=== PATIENT | female | born 1995 | race Caucasian/White ===

== ENCOUNTER → 2020-09-11 13:07 | Outpatient (CLI) | payer OTHER, SELFPAY ==
--- NOTE | 2020-09-11 13:13 | DI.US.S_ITS ---
PROCEDURE: US OB <= 14 WEEKS FETUS INDICATIONS: DATES OUTSIDE/PRIOR DATING DATA: Last menstrual period (LMP): 07/16/20 LMP-based estimated date of delivery (ELVIA): 04/22/21. First dating scan (date and location): 09/11/20, this study. Estimated date of delivery (ELVIA) from first dating scan: 05/06/21. TECHNIQUE: Real-time scanning was performed of the fetus and maternal pelvic organs, with image documentation. Endovaginal scanning was also performed to better visualize the fetus and maternal ovaries. COMPARISON: None. FINDINGS: Embryo: There is a single living intrauterine gestation in a normal appearing amniotic sac, with heart rate 112 beats per minute and yolk sac is visualized. The crown-rump length is 5 mm which correlates with a gestational age of 6 weeks 1 day, +/-5 days. Measurement variability in dating: +/- 4 weeks by LMP, +/- 7 days by mean sac diameter (use before 6 weeks gestation if crown-rump length not able to be measured), +/- 5 days by crown-rump length (up to 8 weeks 6 days gestation), +/- 7 days by crown-rump length (up to 13 weeks 6 days gestation). Maternal organs: Ovaries normal considering gestational status . IMPRESSION: Single living intrauterine gestation with gestational age projected to be 6 weeks 1 day, +/-5 days. The delivery date is based on the crown-rump length and is projected to be 05/16/21, plus or minus days. Dictated by: Ruben Barillas M.D. on 09/11/2020 at 15:04 Approved by: Ruben Barillas M.D. on 09/11/2020 at 15:06
[2020-09-11 17:30] LABS: HCG Quantitative /Beta subunit 39976 mIU/mL
== END ==
LOC: US 13:13
PROVIDERS: Referring Provider Family Medicine; Visit Provider Family Medicine
DX: Z34.01 Encounter for supervision of normal first pregnancy, first trimester (principal); Z3A.01 Less than 8 weeks gestation of pregnancy
CPT/HCPCS: 36415; 76801; 76817; 84702; 86850; 86900; 86901

== ENCOUNTER → 2020-09-17 12:36 | Outpatient (CLI) | payer OTHER, SELFPAY ==
[2020-09-17 13:41] LABS: Appearance Urine UA CLEAR; Bilirubin Urine UA NEGATIVE (NEGATIVE); Color Urine UA YELLOW; Glucose Urine UA NEGATIVE (Negative); Ketones Urine UA TRACE (NEGATIVE); Leukocyte Esterase Urine UA NEGATIVE (NEGATIVE); Nitrite Urine UA NEGATIVE (Negative); Occult Blood Urine UA TRACE-INTACT (Negative); Protein Urine UA NEGATIVE (Negative); Urobilinogen Urine UA 0.2 E.U./dL (0.2)
[2020-09-17 13:42] LABS: pH Urine UA 6.5 (4.5-8.0)
[2020-09-17 15:04] LABS: HCG Quantitative /Beta subunit 89387 mIU/mL
== END ==
PROVIDERS: Referring Provider Family Medicine; Visit Provider Family Medicine
DX: Z34.01 Encounter for supervision of normal first pregnancy, first trimester (principal); E75.02 Tay-Sachs disease; Z82.79 Family history of other congenital malformations, deformations and chromosomal abnormalities; Z3A.01 Less than 8 weeks gestation of pregnancy
CPT/HCPCS: 36415; 81003; 81420; 84702; 86850; 86900; 86901; 87077; 87086

== ENCOUNTER → 2020-11-19 12:06 | Outpatient (CLI) | payer OTHER, SELFPAY ==
[2020-11-19 12:56] LABS: Add Manual Diff / Slide Review NO; Basophils Absolute Auto 0 /uL (0-100); Basophils Percent Auto 0.3 % (0-2); Eosinophils Absolute Auto 0 /uL (0-450); Eosinophils Percent Auto 0.6 % (2-4); Hematocrit 38.2 % (36-46); Hemoglobin 13.2 g/dL (12.0-16.0); Lymphocytes Absolute Auto 1900 /uL (1100-4500); Lymphocytes Percent Auto 28.5 % (25-40); Mean Corpuscular HGB Conc 34.4 % (30-36); Mean Corpuscular Hemoglobin 30.2 PG (26-34); Mean Corpuscular Volume 87.7 fL (80-100); Monocytes Absolute Auto 500 /uL (0-900); Monocytes Percent Auto 7.2 % (3-14); Neutrophils Absolute Auto 4200 /uL (1500-7000); Neutrophils Percent Auto 63.4 % (50-75); Platelet Count 218 X10^3/uL (150-400); Red Blood Cell Count 4.36 X10^6/uL (4.0-5.2); Red Cell Distribution Width 13.5 % (11.6-14.8); White Blood Cell Count 6.6 X10^3/uL (4.5-11.0)
[2020-11-19 13:47] LABS: Hepatitis B Surface Antigen NEGATIVE s/c (NEGATIVE); Rubella Antibody IgG 6.9 IU/mL (>15)
[2020-11-19 13:59] LABS: HIV 1 & 2 Ab/Ag 4th Gen Combo NEGATIVE (NEGATIVE); Hep C Virus Ab w/Reflex Quant NEGATIVE s/c (NEGATIVE)
[2020-11-20 06:27] LABS: RPR Screen Non Reactive (Non Reactive); Varicella IgG Antibody 357 index (Immune >165)
[2020-11-20 15:57] LABS: HSV 2 IGG AB 2.46 index (0.00-0.90); HSV1IGG < 0.91 index (0.00-0.90)
== END ==
PROVIDERS: PCP Family Medicine; Referring Provider Family Medicine; Visit Provider Family Medicine
DX: Z34.01 Encounter for supervision of normal first pregnancy, first trimester (principal)
CPT/HCPCS: 36415; 80055; 86695; 86696; 86787; 86803; 87389

== ENCOUNTER → 2020-11-27 11:23 | Outpatient (CLI) | payer OTHER, SELFPAY ==
[2020-11-27 14:27] LABS: COVID19 -Nasal RAPID Negative (Negative)
== END ==
PROVIDERS: PCP Family Medicine; Visit Provider Nurse Practitioner
DX: R05 Cough (principal); R09.81 Nasal congestion; Z20.822 Contact with and (suspected) exposure to COVID-19
CPT/HCPCS: 87635

== ENCOUNTER → 2020-12-10 10:25 | Outpatient (CLI) | payer OTHER, SELFPAY ==
--- NOTE | 2020-12-10 10:27 | DI.US.S_ITS ---
PROCEDURE: US OB >= 14 WEEKS FETUS INDICATIONS: ANATOMIC SURVEY OUTSIDE/PRIOR DATING DATA: Last menstrual period (LMP): 07/16/2020. LMP-based estimated date of delivery (ELVIA): 04/22/2021. First dating scan (date and location): 09/11/2020 at . Estimated date of delivery (ELVIA) from first dating scan: 05/06/2021. TECHNIQUE: Real-time scanning was performed of the fetus, with image documentation and biometric measurements. Endovaginal scanning: yes. COMPARISON: [facility], OB <= 14 WEEKS FETUS, 09/11/2020, 13:26. FINDINGS: General: A single living intrauterine gestation is present. Presentation: Variable. Placenta: Placental position is posterior and measuring 1.9 cm from the internal os. Amniotic fluid index: 11.9 cm, normal range is 5-24 cm; largest pocket 3.6 cm. heart rate: 160 beats per minute. Maternal cervical canal: 5.3 cm long. Normal lower limit is 2.5 cm. biometrics: Biparietal diameter: 19 weeks 1 day Head circumference: 19 weeks 0 day Abdominal circumference: 19 weeks 1 day Femur length: 18 weeks 6 days Estimated gestational age from initial scan: 19 weeks 0 day. Composite gestational age from present scan: 19 weeks 0 day. Estimated weight and percentile: 269 g; 46% Measurement variability for biometric dating: +/- 7 days from 14 weeks to 15 weeks 6 days gestation, +/- 10 days from 16 weeks to 21 weeks 6 days gestation, +/- 2 weeks from 22 weeks to 27 weeks 6 days gestation, +/- 3 weeks for 28 weeks gestation or later. weight reference: 4500 g or EFW >90/95% is considered macrosomia or large for gestational age. EFW <10% is small for gestational age. EFW 5% or less is considered intra-uterine growth restriction. Anatomic survey: Neuro: Ventricles are non-dilated at less than 10 mm. Cisterna magna is normal at 3-11 mm. Cerebellum is normal in size and morphology. Nuchal skin fold: Normal at less than 6 mm between 14-21 weeks gestational age. Face: Nose and lips, facial profile are normal. Spine: No evidence for spina bifida. Heart: 4-chambered heart is present, with normal ventricular outflow tracts. Diaphragm: Diaphragm is intact. Stomach: Left-sided stomach is present. Kidneys: No hydronephrosis. Normal is less than 5 mm in 2nd trimester, less than 7 mm in 3rd trimester. Cord: 3-vessel cord has orthotopic insertion. Bladder: Normal in size. Extremities: All 4 extremities identified. IMPRESSION: 1. A single living intrauterine gestation with normal interval growth. 2. Normal anatomic survey. 3. Low-lying placenta which measures 1.9 cm from the internal os. Recommend imaging follow-up if clinically indicated. Dictated by: Alton Blake M.D. on 12/10/2020 at 13:17 Approved by: Alton Blake M.D. on 12/10/2020 at 13:22
== END ==
PROVIDERS: PCP Family Medicine; Referring Provider Family Medicine; Visit Provider Family Medicine
DX: Z34.02 Encounter for supervision of normal first pregnancy, second trimester (principal); Z3A.20 20 weeks gestation of pregnancy
CPT/HCPCS: 76811; 76817

== ENCOUNTER → 2021-01-15 10:12 | Outpatient (CLI) | payer OTHER, SELFPAY ==
--- NOTE | 2021-01-15 10:14 | DI.US.S_ITS ---
PROCEDURE: US OB FOLLOW UP INDICATIONS: LOW-LYING PLACENTA OUTSIDE/PRIOR DATING DATA: Last menstrual period (LMP): 07/16/2020. LMP-based estimated date of delivery (ELVIA): 04/22/2021. First dating scan (date and location): 09/11/2020 at [facility]. Estimated date of delivery (ELVIA) from first dating scan: 05/06/2021 TECHNIQUE: Real-time scanning was performed of the fetus, with image documentation. Endovaginal scanning: Not performed. COMPARISON: [facility], , OB >= 14 WEEKS FETUS, 12/10/2020, 10:54. FINDINGS: A single living intrauterine gestation is present. Presentation: Breech Placenta: Placental position is posterior. The lower placental margin is approximately 2.7 cm from the internal cervical os. Amniotic fluid index: 14.1 cm, normal range is 5-24 cm. Large pocket 4.1 cm. heart rate: 139 beats per minute. Maternal cervical canal: 4.8 cm long. Normal lower limit is 2.5 cm Estimated gestational age from initial scan: 24 weeks 1 day. IMPRESSION: 1. Single live intrauterine . 2. Low lying placenta, with inferior margin approximately 2.7 cm from the internal cervical os. Dictated by: Lio Arevalo M.D. on 01/15/2021 at 11:38 Approved by: Lio Arevalo M.D. on 01/15/2021 at 11:42
== END ==
PROVIDERS: PCP Family Medicine; Referring Provider Family Medicine; Visit Provider Family Medicine
DX: O44.42 Low lying placenta NOS or without hemorrhage, second trimester (principal); Z3A.24 24 weeks gestation of pregnancy
CPT/HCPCS: 76816

== ENCOUNTER → 2021-01-20 17:11 | Outpatient (ROUT) | payer OTHER, SELFPAY ==
[2021-01-23 09:40] LABS: HSV 1 DNA Negative (Negative); HSV 2 DNA Positive (Negative)
== END ==
PROVIDERS: PCP Family Medicine; Visit Provider Family Medicine
DX: A74.9 Chlamydial infection, unspecified (principal); B00.9 Herpesviral infection, unspecified
CPT/HCPCS: 87529

== ENCOUNTER → 2021-02-19 14:07 | Outpatient (CLI) | payer OTHER, SELFPAY ==
[2021-02-19 15:53] LABS: Add Manual Diff / Slide Review NO; Basophils Absolute Auto 0 /uL (0-100); Basophils Percent Auto 0.2 % (0-2); Eosinophils Absolute Auto 0 /uL (0-450); Eosinophils Percent Auto 0.4 % (2-4); Hematocrit 35.6 % (36-46); Hemoglobin 12.3 g/dL (12.0-16.0); Lymphocytes Absolute Auto 1700 /uL (1100-4500); Lymphocytes Percent Auto 21.7 % (25-40); Mean Corpuscular HGB Conc 34.4 % (30-36); Mean Corpuscular Hemoglobin 30.7 PG (26-34); Mean Corpuscular Volume 89.4 fL (80-100); Monocytes Absolute Auto 500 /uL (0-900); Monocytes Percent Auto 6.6 % (3-14); Neutrophils Absolute Auto 5500 /uL (1500-7000); Neutrophils Percent Auto 71.1 % (50-75); Platelet Count 187 X10^3/uL (150-400); Red Blood Cell Count 3.99 X10^6/uL (4.0-5.2); Red Cell Distribution Width 13.4 % (11.6-14.8); White Blood Cell Count 7.8 X10^3/uL (4.5-11.0)
[2021-02-19 16:37] LABS: GTT (PREG) 1 Hour PP 50gm Dose 163 mg/dL (76-139)
== END ==
PROVIDERS: PCP Family Medicine; Referring Provider Family Medicine; Visit Provider Family Medicine
DX: Z34.90 Encounter for supervision of normal pregnancy, unspecified, unspecified trimester (principal); Z3A.29 29 weeks gestation of pregnancy
CPT/HCPCS: 36415; 82950; 85025

== ENCOUNTER → 2021-02-28 07:25 | Outpatient (CLI) | payer OTHER, SELFPAY ==
[2021-02-28 09:27] LABS: Glucose 1 Hour Gest 169 mg/dL (76-180)
[2021-02-28 09:27] LABS: Glucose Fasting Gestational 86 mg/dL (76-95)
[2021-02-28 10:44] LABS: Glucose 2 Hour Gest 137 mg/dL (76-155)
[2021-02-28 10:56] LABS: Glucose Tol Interp,Gestational INTERPRETATION
[2021-02-28 12:01] LABS: Glucose 3 Hour Gest 117 mg/dL (76-140)
== END ==
PROVIDERS: PCP Family Medicine; Referring Provider Family Medicine; Visit Provider Family Medicine
DX: O24.419 Gestational diabetes mellitus in pregnancy, unspecified control (principal); Z3A.29 29 weeks gestation of pregnancy
CPT/HCPCS: 36415; 82951; 82952

== ENCOUNTER 2021-03-12 15:20 | Outpatient (CLI) | payer OTHER, SELFPAY ==
--- NOTE | 2021-03-12 15:26 | PM.OBTRLD ---
Visit Information Visit Information Date of evaluation: 03/12/21 Primary OB Provider: Jacqueline Andre Reason for Evaluation: Yes pre-term labor Comments/Additional reasons for admission: 25yo at 32w1d here due to persistent cramping. Pt reports cramping started last night and was constant. Throughout the day today it has been more intermittent, but stronger. She is not certain how often it is occurring. No LOF or vaginal bleeding. She is feeling her baby move regularly. [facility] Medical History (Updated 03/12/21 @ 15:27 by Jacqueline Andre MD) Anxiety Chicken pox (~2015) GERD (gastroesophageal reflux disease) (~2016) Migraines (~2018) Scoliosis Shingles (~2019) Surgical History (Updated 10/01/20 @ 21:53 by Katiana Alvarez) Anesthesia History of removal of nevus [place] teeth extracted (~2016) Family History (Updated 10/01/20 @ 21:55 by Katiana Alvarez) Mother Hypertension Hyperlipidemia Father Brain malignant neoplasm Stented coronary artery Grandmother Diabetes mellitus Thyroid cancer Cardiac defibrillator in situ Pacemaker Stented coronary artery Psoriasis Grandfather Dementia Pacemaker Hx of usp use of blood thinners Grandmother Unknown family medical history Grandfather Brain embolism and thrombosis Brother No problems noted. Social History marital status: unmarried,living together number of children: 0 household members: significant other lives independently: Yes caregiver/support person: No housing: house pets and animals: Yes (1 dog, 3 cats: aware & safe. 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 ) ruth/faith: Taoist special ruth needs: No seatbelt use: always working smoke detector in home: Yes fire extinguisher in home: Yes carbon monox detector in home: Yes firearms in home: Yes firearms unloaded and locked: Yes do you feel safe at home: Yes Smoking Status: Never smoker second hand exposure: No alcohol intake: former (Pre-: Socially. 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 ) frequency: daily duration: > 90 minutes/day Evaluation Evaluation Baseline heart rate: 120 Variability: Moderate (11-25) monitor accelerations: Present Monitor Decelerations: Absent Contraction Frequency (minutes): 0 Category of Tracing: Reactive Diagnosis, Plan/Disposition Final Diagnosis (1) Uterine cramping: Status: Acute Plan/Disposition Plan: 25yo at 32w1d here due to persistent cramping. No contractions on monitoring. U/A without evidence UTI. Discussed heating pad/baths, Tylenol PRN, hydration. Stable for d/c home. OB Disposition: home
[2021-03-12 16:12] LABS: Appearance Urine UA SL CLOUDY; Bilirubin Urine UA NEGATIVE (NEGATIVE); Color Urine UA YELLOW; Glucose Urine UA NEGATIVE (Negative); Ketones Urine UA NEGATIVE (NEGATIVE); Leukocyte Esterase Urine UA NEGATIVE (NEGATIVE); Nitrite Urine UA NEGATIVE (Negative); Occult Blood Urine UA NEGATIVE (Negative); Protein Urine UA NEGATIVE (Negative); Urobilinogen Urine UA 0.2 E.U./dL (0.2)
[2021-03-12 16:53] LABS: Bacteria Urine Moderate (10-30); Culture Indicated Urine Cult Not Indicated; RBC Urine None Seen (0-5/HPF); Squamous Epithelial Cell Urine 5-10 /HPF (0-5/HPF); WBC Urine 5-10/HPF (0-5/HPF)
== END 2021-03-12 17:03 | disposition home or self-care (01) ==
LOC: LABOR 17:03 → OB 03-13 13:40
PROVIDERS: PCP Family Medicine; Referring Provider Family Medicine; Visit Provider Family Medicine
DX: O26.893 Other specified pregnancy related conditions, third trimester (principal); R10.9 Unspecified abdominal pain; Z3A.32 32 weeks gestation of pregnancy
CPT/HCPCS: 59025; 81001; G0378; G0379

== ENCOUNTER → 2021-04-08 15:59 | Outpatient (CLI) | payer OTHER, SELFPAY ==
[2021-04-09 10:44] LABS: Strep Grp B PCR NEG for Grp B Strep
== END ==
PROVIDERS: PCP Family Medicine; Visit Provider Family Medicine
DX: Z34.00 Encounter for supervision of normal first pregnancy, unspecified trimester (principal); Z3A.35 35 weeks gestation of pregnancy
CPT/HCPCS: 87653

== ENCOUNTER 2021-05-06 08:34 | Outpatient (CLI) | payer OTHER, SELFPAY ==
--- NOTE | 2021-05-06 09:31 | P.TNLD_ITS ---
Visit Information Visit Information Date of evaluation: 05/06/21 Primary OB Provider: Jacqueline Andre Reason for Evaluation: Yes other Comments/Additional reasons for admission: 25yo at 40w0d here for headache. Pt reports severe migraine starting last night, persisting into the morning. Has now responded well to Tylenol. No vision changes, RUQ abdominal pain, swelling. No LOF, vaginal bleeding. Mild intermittent contractions. [facility] Medical History (Updated 05/06/21 @ 13:52 by Jacqueline Andre MD) Anxiety Chicken pox (~2015) GERD (gastroesophageal reflux disease) (~2016) Migraines (~2018) Scoliosis Shingles (~2019) Surgical History (Updated 10/01/20 @ 21:53 by Katiana Alvarez) Anesthesia History of removal of nevus [place] teeth extracted (~2016) Family History (Updated 10/01/20 @ 21:55 by Katiana Alvarez) Mother Hypertension Hyperlipidemia Father Brain malignant neoplasm Stented coronary artery Grandmother Diabetes mellitus Thyroid cancer Cardiac defibrillator in situ Pacemaker Stented coronary artery Psoriasis Grandfather Dementia Pacemaker Hx of correction use of blood thinners Grandmother Unknown family medical history Grandfather Brain embolism and thrombosis Brother No problems noted. Social History marital status: unmarried,living together number of children: 0 household members: significant other lives independently: Yes caregiver/support person: No housing: house pets and animals: Yes (1 dog, 3 cats: aware & safe. 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 ) ruth/caodaism: Zoroastrianism special ruth needs: No seatbelt use: always working smoke detector in home: Yes fire extinguisher in home: Yes carbon monox detector in home: Yes firearms in home: Yes firearms unloaded and locked: Yes do you feel safe at home: Yes Smoking Status: Never smoker second hand exposure: No alcohol intake: former (Pre-: Socially. 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 ) frequency: daily duration: > 90 minutes/day Evaluation Evaluation Baseline heart rate: 150 Variability: Moderate (11-25) monitor accelerations: Present Monitor Decelerations: Absent Diagnosis, Plan/Disposition Final Diagnosis (1) Headache: Status: Acute Plan/Disposition Plan: 25yo at 40w0d here for migraine headache. BP normal range, otherwise asymptomatic - no significant concern for pre-eclampsia. Responded well to Tylenol. Safe to d/c home. OB Disposition: home
== END 2021-05-06 09:38 | disposition home or self-care (01) ==
LOC: LABOR 08:44 → OB 05-07 09:48
PROVIDERS: PCP Family Medicine; Referring Provider Family Medicine; Visit Provider Family Medicine
DX: O26.893 Other specified pregnancy related conditions, third trimester (principal); R51.9 Headache, unspecified; O48.0 Post-term pregnancy; Z3A.40 40 weeks gestation of pregnancy
CPT/HCPCS: 59025; G0378; G0379

== ENCOUNTER 2021-05-11 18:34 | Inpatient (IN) | payer OTHER, SELFPAY ==
[2021-05-11 23:04] VITALS: BP 120/72
[2021-05-12 08:12] LABS: Add Manual Diff / Slide Review NO; Basophils Absolute Auto 0 /uL (0-100); Basophils Percent Auto 0.7 % (0-2); Eosinophils Absolute Auto 0 /uL (0-450); Eosinophils Percent Auto 0.6 % (2-4); Hematocrit 38.9 % (36-46); Hemoglobin 13.5 g/dL (12.0-16.0); Lymphocytes Absolute Auto 2000 /uL (1100-4500); Lymphocytes Percent Auto 31.5 % (25-40); Mean Corpuscular HGB Conc 34.6 % (30-36); Mean Corpuscular Hemoglobin 30.2 PG (26-34); Mean Corpuscular Volume 87.4 fL (80-100); Monocytes Absolute Auto 800 /uL (0-900); Monocytes Percent Auto 12.2 % (3-14); Neutrophils Absolute Auto 3400 /uL (1500-7000); Platelet Count 211 X10^3/uL (150-400); Red Blood Cell Count 4.46 X10^6/uL (4.0-5.2); Red Cell Distribution Width 14.4 % (11.6-14.8); White Blood Cell Count 6.2 X10^3/uL (4.5-11.0)
[2021-05-12] MEDS: LACTATED RINGERS 1,000 ML 100 ML IV ×4 (08:17→18:37)
[2021-05-12] MEDS: OXYTOCIN PREMIX 30 UNIT/500 ML PLAST..BAG IV (08:18)
--- NOTE | 2021-05-12 09:12 | PM.OBHP.IH.1 ---
OB HPI Date/Time Date of admission: 05/12/21 Date Patient Seen: 05/12/21 Time Patient Seen: 07:50 History of Present Condition Chief complaint: ELVIA Calculator Estimated Delivery Date Method Current WG Current Estimate 05/06/21 Ultrasound #1 40w 6d Other Estimates 04/22/21 LMP (Certain) 42w 6d Estimated Gestational Age (weeks): 40w6d : 1 Para: 0 Narrative: Pt is a 25yo at 40w6d who presented for post-dates IOL. Her has been uncomplicated. She did have genital HSV at 24wks, treated, and is now on prophylactic Valacylovir without any recurrence of lesions. She denies any vaginal bleeding or LOF. She has had mild cramping. She is feeling her baby move regularly. 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 Indications Indication for induction OB: post dates Preadmission Labs Last OB Lab Results: Blood Type AB Positive 05/12/21 07:55 05/12/21 Antibody Screen Negative 05/12/21 07:55 05/12/21 Hematocrit 38.9 % (36-46) 05/12/21 07:55 05/12/21 Hemoglobin 13.5 g/dL (12.0-16.0) 05/12/21 07:55 05/12/21 Hepatitis B Surface Antigen Negative s/c (NEGATIVE) 11/19/20 12:12 11/19/20 Hepatitis C Antibody Negative s/c (NEGATIVE) 11/19/20 12:12 11/19/20 Rubella Antibody 6.9 IU/mL (>15) L 11/19/20 12:12 11/19/20 Varicella-Zoster IgG Antibody 357 index (Immune >165) 11/19/20 12:12 11/19/20 Glucose 1 Hour 163 mg/dL (76-139) H 02/19/21 14:14 02/19/21 Group B Streptococcus (PCR) Neg for grp b strep 04/08/21 15:59 04/08/21 Glucose Tolerance Testing: Fasting (86), 1 hr (169), 2 hr (137) and 3 hr (117) -: Urine: negative -: PAP smear: Normal Genetic Screens: Cell-free DNA: Normal External Labs -: Urine: negative Evaluation Evaluation Baseline heart rate: 130 Variability: Moderate (11-25) monitor accelerations: Present Monitor Decelerations: Absent Status: Category l Dilation (cm): 1.5 Effacement (%): 70 Dilation: 1-2 cm Effacement: 60-70% station: -2 Position of cervix: posterior Consistency: soft Srivastava score: 6 PFSH Medical History (Updated 05/06/21 @ 13:52 by Jacqueline Andre MD) Anxiety Chicken pox (~2015) GERD (gastroesophageal reflux disease) (~2016) Migraines (~2018) Scoliosis Shingles (~2019) Surgical History (Updated 10/01/20 @ 21:53 by Katiana Alvarez) Anesthesia History of removal of nevus [place] teeth extracted (~2016) Family History (Updated 10/01/20 @ 21:55 by Katiana Alvarez) Mother Hypertension Hyperlipidemia Father Brain malignant neoplasm Stented coronary artery Grandmother Diabetes mellitus Thyroid cancer Cardiac defibrillator in situ Pacemaker Stented coronary artery Psoriasis Grandfather Dementia Pacemaker Hx of shelter use of blood thinners Grandmother Unknown family medical history Grandfather Brain embolism and thrombosis Brother No problems noted. Social History marital status: unmarried,living together number of children: 0 household members: significant other lives independently: Yes caregiver/support person: No housing: house pets and animals: Yes (1 dog, 3 cats: aware & safe. 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 ) ruth/zoroastrianism: Yazdanism special ruth needs: No seatbelt use: always working smoke detector in home: Yes fire extinguisher in home: Yes carbon monox detector in home: Yes firearms in home: Yes firearms unloaded and locked: Yes do you feel safe at home: Yes Smoking Status: Never smoker second hand exposure: No alcohol intake: former (Pre-: Socially. 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 ) frequency: daily duration: > 90 minutes/day Meds Home Medications and Allergies Home Medications Medication Instructions Recorded Confirmed Type prenat.vits,crystal,[id number] 1 tab PO DAILY 09/05/20 05/12/21 History valacyclovir 1 gram tablet 1,000 mg PO BID #60 tab 04/11/21 05/12/21 Rx breast pump #1 ea 04/14/21 05/12/21 Rx Allergies Allergy/AdvReac Type Severity Reaction Status Date / Time lactose Allergy Intermediate GI upset & Verified 05/02/21 08:51 pain OB Exam Narrative Exam Narrative: Gen: NAD, sitting comfortably in bed, appears well CV: RRR, no murmurs Resp: clear to auscultation bilaterally Abd: soft, gravid Ext: no edema Objective Labs Result Diagrams: 05/12/21 07:55 Labs: Laboratory Results - last 24 hr 05/12/21 05/12/21 07:55 07:55 WBC 6.2 RBC 4.46 Hgb 13.5 Hct 38.9 MCV 87.4 MCH 30.2 MCHC 34.6 RDW 14.4 Plt Count 211 Neut % (Auto) 55.0 Lymph % (Auto) 31.5 [place] % (Auto) 12.2 Eos % (Auto) 0.6 L Baso % (Auto) 0.7 Neut # (Auto) 3400 Lymph # (Auto) 2000 [place] # (Auto) 800 Eos # (Auto) 0 Baso # (Auto) 0 Blood Type AB Positive Antibody Screen Negative Assessment and Plan Assessment and Plan Assessment and Plan narrative: 25yo at 40w6d here for post-dates IOL. Hx of HSV, on Valacyclovir prophylaxis. GBS negative, Rh positive. Srivastava score 6. - Expectant management, anticipate - FHT reassuring - GBS negative, no prophylaxis - Natural methods for pain control for now - Start pitocin, titrate as tolerated. Plan for AROM once cervix more favorable.
[2021-05-12] MEDS: CALCIUM CARBONATE 500 MG TAB 1000 MG PO ×2 (10:02→18:09)
--- NOTE | 2021-05-12 13:03 | PM.OBPNLAB ---
Date/Time Date Patient Seen: 05/12/21 Time Patient Seen: 12:45 Pain Control Pain control: tolerating well Pelvic Exam Dilation (cm): 2.5 Effacement (%): 70 station: -1 Amniotic membrane status: Ruptured Comments: After informed consent, AROM performed with production of clear fluid. Contractions Monitor mode: External Pitocin rate (mU/min): 19 Contraction frequency (min): 3 Contraction pattern: Regular Status status: Category l Heart Rate Baseline: 135 Monitor Accelerations: Present Monitor Decelerations: Absent Monitor Variability: Moderate Assessment and Plan Comments: 25yo at 40w6d here for post-dates IOL.? Hx of HSV, on Valacyclovir prophylaxis.? GBS negative, Rh positive.? AROM with production of clear fluid. - Expectant management, anticipate - FHT reassuring - GBS negative, no prophylaxis - Natural methods for pain control for now - Continue pitocin, titrate as tolerated.
[2021-05-12 13:44] LABS: COVID19 -Nasal RAPID Negative (Negative)
[2021-05-12] MEDS: FENT 2MCG/ML BUPIV 0.125% EPI 200 MCG/100 ML PLAST..BAG 10 MCG EPIDURAL (14:04)
--- NOTE | 2021-05-12 20:44 | PM.OBPRVD ---
Labor & Delivery Intrapartal Events: None Cervical ripening method: none Induction method: per pitocin protocol Delivery augmentation: rupture of membranes Delivery monitor: external FHT Route of delivery: Episiotomy description: None L&D Laceration Description: Perineal - 2nd Degree Delivery repair: vicryl Estimated blood loss (mL): 150 Anesthesia Type: Epidural Complications: None Narrative: PROCEDURE: at 40w6d presented for post-dates IOL and was admitted to Labor and Delivery. She was started on pitocin, that was titrated up to a maximum of 19mU. AROM was performed with production of clear fluid. The patient progressed through the 1st stage over 6 hours. Pain was controlled with an epidural. The patient progressed through the 2nd stage over 1.5 hours and delivered a viable male infant with APGARs 8/9 at 20:14 via without complications. Nuchal cord x 2 was reduced at the perineum. The cord was cut and clamped after it stopped pulsating. The perineum and vagina were inspected with 2nd degree laceration repaired with 2-O Vicryl. PREPROCEDURE DIAGNOSIS: Intrauterine at 40w6d GBS negative RH positive POSTPROCEDURE DIAGNOSIS: Intrauterine at 40w6d, delivered Same as preprocedure Baby 1: gender: Male Presentation: vertex Position: Left Occiput Anterior Placenta delivery description: Spontaneous Cord Vessel Description: 3 Vessels and Nuchal Cord score (1 min): 8 score (5 min): 9 weight: 9 lb 5.879 oz Plan for aftercare: Routine care
[2021-05-12] MEDS: IBUPROFEN 600 MG TABLET PO (22:38)
[2021-05-13] MEDS: ACETAMINOPHEN 325 MG TABLET 650 MG PO ×3 (03:14→17:52)
[2021-05-13] MEDS: DOCUSATE 100 MG CAPSULE PO (09:46)
[2021-05-13] MEDS: PRENATAL VIT,CALC/IRON/FOLIC 1 TABLET 1 TAB PO (09:46)
[2021-05-13] MEDS: IBUPROFEN 600 MG TABLET PO ×2 (09:47→17:52)
--- NOTE | 2021-05-13 13:29 | PM.OBDS.1 ---
Discharge Providers Provider Date of admission: 05/11/21 18:34 Discharge Date: 05/13/21 Primary care physician: Jacqueline Andre MD Consults: 05/13/21 20:43 Consult to [employer]ar [employer] Automatic Routine Comment: Discharge provider: Jacqueline Andre MD Summary Hospital Course Date Patient Seen: 05/13/21 Time Patient Seen: 12:35 Diagnoses: Intrauterine at 40w6d GBS negative RH positive Hospital Course: The patient presented for postdates induction. She was started on Pitocin, and then AROM was performed with production of clear fluid. She received an epidural for pain control. She progressed to complete and had spontaneous vaginal delivery of a viable baby boy on 05/12/2021 without complications. A second-degree perineal laceration was then repaired. The patient tolerated delivery well. , there were no complications. At the time of discharge she was voiding, ambulating, passing flatus without difficulty. Her lochia was decreasing appropriately. Her pain was well controlled. She is with good latch. She will follow up in clinic in 6 weeks for check. She desires oral contraception for control. Peripartum Data Delivery Method: Natural Vaginal Laceration Description: Perineal - 2nd Degree Episiotomy description: None Procedures: Spontaneous vaginal delivery complications: none [place] 1: Gender: Male Disposition of : home Discharge Diagnosis (1) Spontaneous vaginal delivery: Status: Acute Status at Discharge Cognitive/behavioral status at discharge: oriented Functional status at discharge: independent ambulation Overall status at discharge: patient is progressing back to baseline Time Spent with Patient Time attestation: Total time spent providing and/or coordinating discharge services: Objective Labs Result Diagrams: 05/12/21 07:55 Labs: Laboratory Results - last 24 hr 05/12/21 13:27 SARS-CoV-2 (PCR) Negative Exam Narrative Exam Narrative: Gen: NAD, sitting comfortably in bed, appears well CV: RRR, no murmurs Resp: clear to auscultation bilaterally Abd: soft, appropriately tender, fundus firm and below the umbilicus, nondistended Ext: no edema Discharge Plan Discharge Plan Patient Disposition: Home Discharge orders & Medications Prescriptions: New acetaminophen 325 mg Tablet 650 mg PO Q6HR PRN (Reason: Pain, Mild (1-3)) Qty: 30 0RF docusate sodium 100 mg Capsule 100 mg PO DAILY Qty: 30 0RF ibuprofen 600 mg Tablet 600 mg PO Q6HR PRN (Reason: Pain, Mild (1-3)) Qty: 30 0RF Continued (DME) breast pump Device See Rx Instructions .ROUTE .MEDSUPPLY Qty: 1 0RF Rx Instructions: As directed prenat.vits,crystal,[id number] Tablet 1 tab PO DAILY 0RF Discontinued valacyclovir 1 gram tablet 1,000 mg PO BID Qty: 60 1RF Follow up/Referrals: Jacqueline Andre MD [Primary Care Provider] - 6 Weeks Diet/Activity/Treatments Diet: Diet as Tolerated and Regular Skin/Wound/Dressing Care Report to your healthcare provider any signs of infection, such as:: chills, fever, increased pain and unusual drainage Visit Report/Discharge Packet Instructions: DI for Labor and Delivery, Vaginal Visit Report Forms: Patient Portal/API, Stroke Signs & Symptoms Discharge Data Primary Care Provider: Jacqueline Andre
[2021-05-13 15:20] VITALS: BP 109/70; PULSE 94; RESP 17; TEMP 36.3
[2021-05-13] MEDS: MEASLES,MUMPS,RUBELLA VACC/PF 0.5 ML VIAL SUBCUT (17:53)
== END 2021-05-13 22:46 | disposition home or self-care (01) | DRG 806 ==
PROVIDERS: Admitting Provider Family Medicine; PCP Family Medicine; Referring Provider Family Medicine; Visit Provider Family Medicine
DX: O48.0 Post-term pregnancy (principal); O98.32 Other infections with a predominantly sexual mode of transmission complicating childbirth; Z37.0 Single live birth; A60.9 Anogenital herpesviral infection, unspecified; Z3A.40 40 weeks gestation of pregnancy; O70.1 Second degree perineal laceration during delivery; O69.81X0 Labor and delivery complicated by cord around neck, without compression, not applicable or unspecified; Z20.822 Contact with and (suspected) exposure to COVID-19
CPT/HCPCS: 01967; 36415; 59050; 59410; 85025; 86850; 86900; 86901; 87635; 93010; C9803; G0379; J2590

== ENCOUNTER 2021-05-14 02:35 | Observation (INO) | payer OTHER, SELFPAY ==
[2021-05-14] VITALS (12 sets, daily range): BP systolic 105–124; BP diastolic 59–87; PULSE 74–117; RESP 15–33; TEMP 36.5–36.9; O2SAT 98–100; BMI 29.5
--- NOTE | 2021-05-14 02:56 | ED_ITS ---
HPI - Dizziness General Chief Complaint: Weakness Stated Complaint: DIZZY, WEAK, WARM, SHAKY Time Seen by Provider: 05/14/21 02:44 Source: patient and old records reviewed Mode of arrival: Ambulatory Limitations: no limitations History of Present Illness HPI Narrative: This is a 25-year-old who is 24 hours from a a vaginal delivery. Patient had epidural. She did have a second-degree perineal tear which was repaired. Patient states she tolerated this well she was feeling okay prior to discharge about an hour after she got home started to feel shaky, nauseated and feel warm. She has not had fevers but she has felt hot. She has not had any chills. She denies any headache. No neck pain. No chest pain or pressure. Some mild shortness of breath. She has had nausea but no vomiting. She denies any dysuria, urgency or frequency. She has had some left low back nerve pain or discomfort since delivery. She has had some abdominal cramping but states it has not really been particularly painful. She states she has had several bowel movements initially quite constipated in looser but have been frequent. She had some rash on her abdomen from the monitors while in the hospital. She states she has not appreciated any vaginal odor. She states incisions have been little bit more painful since she arrived home. She has passed 1 small clot but feels like her vaginal bleeding has been normal. She denies any breast tenderness. She is breast feeding. She states she felt too shaky and was almost having difficulty with this. She denies any past medical issues. She has had wisdom teeth removed. No allergies. No tobacco, alcohol or illicit. Dr. Andre is her primary care as well as the physician who performed her delivery. Related Data Home Medications Medication Instructions Recorded Confirmed prenat.vits,crystal,[id number] 1 tab PO DAILY 09/05/20 05/12/21 Previous Rx's Medication Instructions Recorded breast pump #1 ea 04/14/21 acetaminophen 325 mg tablet 650 mg PO Q6HR PRN #30 tab 05/13/21 docusate sodium 100 mg capsule 100 mg PO DAILY #30 cap 05/13/21 ibuprofen 600 mg tablet 600 mg PO Q6HR PRN #30 tab 05/13/21 Allergies Allergy/AdvReac Type Severity Reaction Status Date / Time lactose Allergy Intermediate GI upset & Verified 05/02/21 08:51 pain Review of Systems Review of Systems ROS Unobtainable: All systems reviewed & are unremarkable except as noted in HPI and below Patient History Medical History Anxiety Chicken pox (~2015) GERD (gastroesophageal reflux disease) (~2017) Migraines (~2019) Scoliosis Shingles (~2019) Surgical History Anesthesia History of removal of nevus [place] teeth extracted (~2017) Family History Mother Hypertension Hyperlipidemia Father Brain malignant neoplasm Stented coronary artery Grandmother Diabetes mellitus Thyroid cancer Cardiac defibrillator in situ Pacemaker Stented coronary artery Psoriasis Grandfather Dementia Pacemaker Hx of superintendent marine oil terminal use of blood thinners Grandmother Unknown family medical history Grandfather Brain embolism and thrombosis Brother No problems noted. Social History marital status: unmarried,living together number of children: 0 household members: significant other lives independently: Yes caregiver/support person: No housing: house pets and animals: Yes (1 dog, 3 cats: aware & safe. 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 ) ruth/zoroastrian: Catholic special ruth needs: No seatbelt use: always working smoke detector in home: Yes fire extinguisher in home: Yes carbon monox detector in home: Yes firearms in home: Yes firearms unloaded and locked: Yes do you feel safe at home: Yes Smoking Status: Never smoker second hand exposure: No alcohol intake: former (Pre-: Socially. 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 ) frequency: daily duration: > 90 minutes/day Smoking Status: Never smoker Exam Narrative Exam Narrative: GEN: Female, alert and oriented x 3, patient appears to be in mild distress. Patient has rigors. HEENT: Atraumatic, pupils are equal round reactive to light, extraocular movements are intact, nares are clear, TMs are clear with no fluid, there is no conjunctival pallor. Throat is clear without any exudates, erythema, tonsillar enlargement or uvular deviation, normal rotation and flexion extension the neck with negative meningeal signs. HEART: Regular rate and rhythm without murmur, clicks, rubs. Pulses are equal in upper and lower extremities LUNGS:Lungs clear to auscultation, no wheezes, rales, crackles, chest moves symmetrically, no tachypnea accessory muscle use. ABD:bowel sounds normal, soft, mild abdominal tenderness, no guarding, rebound, rigidity, no masses noted, no hepatosplenomegaly. Patient has 3 circular areas or erythema on her abdomen consistent with monitoring that are slightly raised. Patient does have abdominal striae consistent with recent and linea nigra. :No CVA tenderness MSCL: Non-tender, no muscle atrophy, muscles strength 5/5 upper and lower extremities, full range of motion NEURO:CN 2-12 intact, sensation normal SKIN: No petechiae, no other rash or skin lesions appreciated other than noted above. Initial Vital Signs Initial Vital Signs: Vital Signs Temperature 98.5 F 05/14/21 02:55 Pulse Rate 109 H 05/14/21 02:55 Respiratory Rate 20 05/14/21 02:55 Blood Pressure 121/82 05/14/21 02:55 Pulse Oximetry 99 05/14/21 02:55 Course Orders Ordered: ED Orders 05/14/21 EKG-12 Lead Stat 05/14/21 02:30 Complete Blood Count AUTO DIFF Stat Comprehensive Metabolic Panel Stat Lactate (Lactic Acid) Stat Partial Thromboplastin Time Stat Procalcitonin Stat Prothrombin Time INR Stat Troponin & CK Cardiac Panel Stat 05/14/21 03:09 Chest [XR chest 1V] Stat 05/14/21 03:24 Blood Culture Stat 05/14/21 03:41 COVID19 -Nasal swab/Pre-Proc Stat 05/14/21 04:31 Urinalysis and Microscopic Stat Urine Culture Stat Acetaminophen (Acetaminophen 325 Mg Tablet) 650 mg PO Q6HR PRN PRN Reason: Fever/Mild Pain (1-3) Sodium Chloride (Normal Saline 0.9%) 1,000 mls @ 125 mls/hr IV CONT MADELINE Clindamycin Phosphate (Cleocin) 900 mg in 50 mls @ 50 mls/hr IV Q6H MADELINE Ondansetron HCl (Ondansetron 4 Mg/2 Ml Inj) 4 mg IV Q4HR PRN PRN Reason: Nausea And Vomiting Discontinued Medications Lactated Ringer's (Lactated Ringers) 2,637 mls @ 879 mls/hr 30 ml/kg infuse over 3 hr (2637 ml) IV NOW ONE Stop: 05/14/21 06:06 Last Admin: 05/14/21 03:31 Dose: 879 mls/hr Documented by: YESI Clindamycin Phosphate (Cleocin) 900 mg in 50 mls @ 50 mls/hr IV NOW ONE Stop: 05/14/21 04:13 Last Infusion: 05/14/21 04:46 Dose: 0 mls/hr Documented by: Admin: 05/14/21 03:36 Dose: 50 mls/hr Documented by: YESI Gentamicin Sulfate 370 mg/ (Sodium Chloride) 109.25 mls @ 109.25 mls/hr IV NOW ONE Stop: 05/14/21 03:14 Last Infusion: 05/14/21 05:57 Dose: 0 mls/hr Documented by: Admin: 05/14/21 04:46 Dose: 109.25 mls/hr Documented by: YESI Ampicillin Sodium/Sulbactam (Sodium 3 gm/ Sodium Chloride) 100 mls @ 100 mls/hr IV NOW ONE Stop: 05/14/21 05:28 Ketorolac Tromethamine (Ketorolac 30 Mg/Ml Vial) 15 mg IV NOW ONE Stop: 05/14/21 04:52 Last Admin: 05/14/21 05:00 Dose: 15 mg Documented by: YESI Ondansetron HCl (Ondansetron 4 Mg/2 Ml Inj) 4 mg IV NOW ONE Stop: 05/14/21 04:52 Last Admin: 05/14/21 05:03 Dose: 4 mg Documented by: YESI Consultations Consultation #1: Dr. Cruz, technology trainer. Discussed patient's labs are reassuring she has had some mild persistent tachycardia but will normalize into the 90s. She appears unwell. She has shaking rigors. Suspect endometritis although she has been afebrile in the department. She has some mild abdominal discomfort but not significant on exam. Chest x-ray and lab work show no major changes. Urine shows minimal leukocyte esterase but not clearly UTI. Discussed it would be appropriate to obtain abdominal ultrasound/pelvic or CT imaging and states that this would not be helpful to rule in or out endometriosis or pelvic thrombophlebitis. Plan for admission with IV antibiotics and monitoring under the OB service. Plan for admission under Dr. Andre with bridging orders. Vital Signs Vital signs: Vital Signs - 8 hr 05/14/21 02:55 05/14/21 03:27 05/14/21 03:30 Temperature 98.5 F Pulse Rate 109 H 97 H 99 H Respiratory Rate 20 23 15 Blood Pressure 121/82 Pulse Oximetry 99 100 100 05/14/21 04:00 05/14/21 04:30 05/14/21 04:32 Temperature Pulse Rate 115 H 109 H 104 H Respiratory Rate 24 20 Blood Pressure 115/71 Pulse Oximetry 100 100 100 05/14/21 05:00 Temperature Pulse Rate 98 H Respiratory Rate 23 Blood Pressure Pulse Oximetry 98 MDM - Dizziness Lab Data Result diagrams: 05/14/21 02:30 05/14/21 02:30 Labs: Lab Results 05/14/21 05/14/21 05/14/21 Range/Units 02:30 02:30 02:30 WBC 8.8 (4.5-11.0) X10^3/uL RBC 4.11 (4.0-5.2) X10^6/uL Hgb 12.4 (12.0-16.0) g/dL Hct 36.1 (36-46) % MCV 87.9 (80-100) fL MCH 30.1 (26-34) PG MCHC 34.3 (30-36) % RDW 14.4 (11.6-14.8) % Plt Count 245 (150-400) X10^3/uL Neut % (Auto) 71.2 (50-75) % Lymph % (Auto) 20.9 L (25-40) % Carter % (Auto) 7.4 (3-14) % Eos % (Auto) 0.3 L (2-4) % Baso % (Auto) 0.2 (0-2) % Neut # (Auto) 6200 (6406-2602) /uL Lymph # (Auto) 1800 (2578-1604) /uL Carter # (Auto) 600 (0-900) /uL Eos # (Auto) 0 (0-450) /uL Baso # (Auto) 0 (0-100) /uL PT 10.2 (10.1-12.7) SECONDS INR 0.9 (0.9-1.3) APTT (26.4-36.2) SECONDS Sodium 139 (137-145) mmol/L Potassium 4.0 (3.4-5.1) mmol/L Chloride 111 H (98-107) mmol/L Carbon Dioxide 25 (22-32) mmol/L BUN 5 L (7-17) mg/dL Creatinine 0.49 L (0.52-1.04) mg/dL Estimated GFR > 60.0 (>60) mL/min BUN/Creatinine Ratio 10.2 (6-22) Glucose 119 H (70-100) mg/dL Lactate (0.7-2.1) mmol/L Calcium 9.5 (8.4-10.2) mg/dL Total Bilirubin 0.4 (0.2-1.3) mg/dL AST 28 (14-36) IU/L ALT 13 (<35) IU/L Alkaline Phosphatase 123 (38-126) U/L Total Creatine Kinase 134 (30-135) U/L CK-MB (CK-2) 1.72 (<2.37) ng/mL CK-MB (CK-2) Rel Index 1.3 L (1.5-5.0) % Troponin I < 0.012 (0.01-0.034) ng/mL Total Protein 6.5 (6.3-8.2) g/dL Albumin 3.7 (3.5-5.0) g/dL Globulin 2.8 (1.7-4.1) g/dL Albumin/Globulin Ratio 1.3 (1.0-2.8) Procalcitonin 0.05 (<0.5) ng/mL Urine Color Urine Appearance Urine pH (4.5-8.0) Ur Specific Sterling (1.000-1.035) Urine Protein (Negative) Urine Glucose (UA) (Negative) g/dL Urine Ketones (NEGATIVE) Urine Occult Blood (Negative) Urine Nitrate (Negative) Urine Bilirubin (NEGATIVE) Urine Urobilinogen (0.2) E.U./dL Ur Leukocyte Esterase (NEGATIVE) Urine RBC (0-5/HPF) Urine WBC (0-5/HPF) Ur Squamous Epith Cells (0-5/HPF) Urine Bacteria (None) Ur Culture Indicated? SARS-CoV-2 (PCR) (Negative) 05/14/21 05/14/21 05/14/21 Range/Units 02:30 02:30 03:41 WBC (4.5-11.0) X10^3/uL RBC (4.0-5.2) X10^6/uL Hgb (12.0-16.0) g/dL Hct (36-46) % MCV (80-100) fL MCH (26-34) PG MCHC (30-36) % RDW (11.6-14.8) % Plt Count (150-400) X10^3/uL Neut % (Auto) (50-75) % Lymph % (Auto) (25-40) % Carter % (Auto) (3-14) % Eos % (Auto) (2-4) % Baso % (Auto) (0-2) % Neut # (Auto) (4145-6344) /uL Lymph # (Auto) (4595-2288) /uL Carter # (Auto) (0-900) /uL Eos # (Auto) (0-450) /uL Baso # (Auto) (0-100) /uL PT (10.1-12.7) SECONDS INR (0.9-1.3) APTT 28 (26.4-36.2) SECONDS Sodium (137-145) mmol/L Potassium (3.4-5.1) mmol/L Chloride (98-107) mmol/L Carbon Dioxide (22-32) mmol/L BUN (7-17) mg/dL Creatinine (0.52-1.04) mg/dL Estimated GFR (>60) mL/min BUN/Creatinine Ratio (6-22) Glucose (70-100) mg/dL Lactate 1.5 (0.7-2.1) mmol/L Calcium (8.4-10.2) mg/dL Total Bilirubin (0.2-1.3) mg/dL AST (14-36) IU/L ALT (<35) IU/L Alkaline Phosphatase (38-126) U/L Total Creatine Kinase (30-135) U/L CK-MB (CK-2) (<2.37) ng/mL CK-MB (CK-2) Rel Index (1.5-5.0) % Troponin I (0.01-0.034) ng/mL Total Protein (6.3-8.2) g/dL Albumin (3.5-5.0) g/dL Globulin (1.7-4.1) g/dL Albumin/Globulin Ratio (1.0-2.8) Procalcitonin (<0.5) ng/mL Urine Color Urine Appearance Urine pH (4.5-8.0) Ur Specific Sterling (1.000-1.035) Urine Protein (Negative) Urine Glucose (UA) (Negative) g/dL Urine Ketones (NEGATIVE) Urine Occult Blood (Negative) Urine Nitrate (Negative) Urine Bilirubin (NEGATIVE) Urine Urobilinogen (0.2) E.U./dL Ur Leukocyte Esterase (NEGATIVE) Urine RBC (0-5/HPF) Urine WBC (0-5/HPF) Ur Squamous Epith Cells (0-5/HPF) Urine Bacteria (None) Ur Culture Indicated? SARS-CoV-2 (PCR) Negative (Negative) 05/14/21 Range/Units 04:31 WBC (4.5-11.0) X10^3/uL RBC (4.0-5.2) X10^6/uL Hgb (12.0-16.0) g/dL Hct (36-46) % MCV (80-100) fL MCH (26-34) PG MCHC (30-36) % RDW (11.6-14.8) % Plt Count (150-400) X10^3/uL Neut % (Auto) (50-75) % Lymph % (Auto) (25-40) % Carter % (Auto) (3-14) % Eos % (Auto) (2-4) % Baso % (Auto) (0-2) % Neut # (Auto) (6718-0676) /uL Lymph # (Auto) (1812-3369) /uL Carter # (Auto) (0-900) /uL Eos # (Auto) (0-450) /uL Baso # (Auto) (0-100) /uL PT (10.1-12.7) SECONDS INR (0.9-1.3) APTT (26.4-36.2) SECONDS Sodium (137-145) mmol/L Potassium (3.4-5.1) mmol/L Chloride (98-107) mmol/L Carbon Dioxide (22-32) mmol/L BUN (7-17) mg/dL Creatinine (0.52-1.04) mg/dL Estimated GFR (>60) mL/min BUN/Creatinine Ratio (6-22) Glucose (70-100) mg/dL Lactate (0.7-2.1) mmol/L Calcium (8.4-10.2) mg/dL Total Bilirubin (0.2-1.3) mg/dL AST (14-36) IU/L ALT (<35) IU/L Alkaline Phosphatase (38-126) U/L Total Creatine Kinase (30-135) U/L CK-MB (CK-2) (<2.37) ng/mL CK-MB (CK-2) Rel Index (1.5-5.0) % Troponin I (0.01-0.034) ng/mL Total Protein (6.3-8.2) g/dL Albumin (3.5-5.0) g/dL Globulin (1.7-4.1) g/dL Albumin/Globulin Ratio (1.0-2.8) Procalcitonin (<0.5) ng/mL Urine Color Yellow Urine Appearance Clear Urine pH 7.5 (4.5-8.0) Ur Specific Sterling 1.010 (1.000-1.035) Urine Protein Negative (Negative) Urine Glucose (UA) Negative (Negative) g/dL Urine Ketones Negative (NEGATIVE) Urine Occult Blood 3+ H (Negative) Urine Nitrate Negative (Negative) Urine Bilirubin Negative (NEGATIVE) Urine Urobilinogen 0.2 (0.2) E.U./dL Ur Leukocyte Esterase Trace H (NEGATIVE) Urine RBC 5-10/hpf H (0-5/HPF) Urine WBC None seen (0-5/HPF) Ur Squamous Epith Cells 1-5 /hpf (0-5/HPF) Urine Bacteria Occasional (0-1) D (None) Ur Culture Indicated? Specimen cultured SARS-CoV-2 (PCR) (Negative) Imaging Data Chest x-ray: Radiologist's Impression: Nap. ECG Data Attestation: I personally reviewed and interpreted this ECG as follows: Prior ECG tracings: not available for review Interpretation: Sinus rhythm with sinus arrhythmia. Rate of 95 SD 112, QRS 84 and QTC 407. No acute ST elevation appreciated. No depression noted. MDM Narrative Medical decision making narrative: This is a 25-year-old female comes in complaining of feeling warm, shaky and dizzy with rigors on exam. She has tachycardia which sinus but improved to the 90s intermittently. She is not hypotensive, tachypneic and has otherwise normal vitals. Patient appears to be septic with shaking rigors but has mild abdominal discomfort. She is 24 hours otherwise healthy with a vaginal delivery with epidural. Patient was covered with IV antibiotics for potential endometritis. Unasyn was added for also possible UTI with some changes to urine but not clearly UTI or pyelonephritis. Chest x-ray and other labs works are reassuring. COVID swab is negative. Blood cultures are currently pending. Case was discussed with be about any additional imaging and felt it would not be helpful at this time. Plan for admission for IV antibiotics under the OB service with Dr. Andre. Discharge Plan Departure Patient Disposition: Admitted as Observation Clinical Impression: Maternal infection,
--- NOTE | 2021-05-14 03:09 | DI.RAD.S_ITS ---
PROCEDURE: XR CHEST 1V INDICATIONS: shaking, dizzy, feels hot, 24 hrs TECHNIQUE: One view of the chest was acquired. COMPARISON: None. FINDINGS: Surgical changes and devices: None. Lungs and pleura: There is mild pulmonary vascular prominence suggestive of mild edema. No focal consolidation. No pleural effusions or pneumothorax. Mediastinum: Mediastinal contours appear normal. Heart size is normal. Bones and chest wall: No suspicious bony lesions. Overlying soft tissues appear unremarkable. IMPRESSION: 1. Mild pulmonary vascular prominence suggestive of mild edema which may be due to cardiogenic or noncardiogenic etiologies such as atypical pneumonia. Dictated by: Bryson Lopez M.D. on 05/14/2021 at 8:24 Approved by: Bryson Lopez M.D. on 05/14/2021 at 8:29
[2021-05-14 03:22] LABS: Add Manual Diff / Slide Review NO; Basophils Absolute Auto 0 /uL (0-100); Basophils Percent Auto 0.2 % (0-2); Eosinophils Absolute Auto 0 /uL (0-450); Eosinophils Percent Auto 0.3 % (2-4); Hematocrit 36.1 % (36-46); Hemoglobin 12.4 g/dL (12.0-16.0); Lymphocytes Absolute Auto 1800 /uL (1100-4500); Lymphocytes Percent Auto 20.9 % (25-40); Mean Corpuscular HGB Conc 34.3 % (30-36); Mean Corpuscular Hemoglobin 30.1 PG (26-34); Mean Corpuscular Volume 87.9 fL (80-100); Monocytes Absolute Auto 600 /uL (0-900); Monocytes Percent Auto 7.4 % (3-14); Neutrophils Absolute Auto 6200 /uL (1500-7000); Neutrophils Percent Auto 71.2 % (50-75); Platelet Count 245 X10^3/uL (150-400); Red Blood Cell Count 4.11 X10^6/uL (4.0-5.2); Red Cell Distribution Width 14.4 % (11.6-14.8); White Blood Cell Count 8.8 X10^3/uL (4.5-11.0)
[2021-05-14 03:28] LABS: Lactate (Lactic Acid) 1.5 mmol/L (0.7-2.1)
[2021-05-14 03:29] LABS: Alanine Aminotransferase 13 IU/L (<35); Albumin 3.7 g/dL (3.5-5.0); Albumin Globulin Ratio 1.3 (1.0-2.8); Alkaline Phosphatase 123 U/L (38-126); Aspartate Aminotransferase 28 IU/L (14-36); BUN Creatinine Ratio 10.2 (6-22); Bilirubin Total 0.4 mg/dL (0.2-1.3); Blood Urea Nitrogen 5 mg/dL (7-17); Calcium 9.5 mg/dL (8.4-10.2); Carbon Dioxide 25 mmol/L (22-32); Chloride 111 mmol/L (98-107); Creatine Kinase 134 U/L (30-135); Estimated Glomerular Filt Rate > 60.0 mL/min (>60); Globulin 2.8 g/dL (1.7-4.1); Glucose 119 mg/dL (70-100); HEMOLYSIS < 15 (0-50); Sodium 139 mmol/L (137-145); Total Protein 6.5 g/dL (6.3-8.2)
[2021-05-14] MEDS: LACTATED RINGERS 879 ML IV (03:31)
[2021-05-14] MEDS: CLINDAMYCIN 900 MG/50 ML PIGGYBACK 50 MG IV ×2 (03:36→12:52)
[2021-05-14 03:40] LABS: Troponin I < 0.012 ng/mL (0.01-0.034)
[2021-05-14 03:45] LABS: Procalcitonin 0.05 ng/mL (<0.5)
[2021-05-14 04:02] LABS: COVID19 -Nasal RAPID Negative (Negative)
[2021-05-14 04:26] LABS: CKMB % Relative Index 1.3 % (1.5-5.0); Creatine Kinase MB 1.72 ng/mL (<2.37)
[2021-05-14 04:32] LABS: INR 0.9 (0.9-1.3); Prothrombin Time 10.2 SECONDS (10.1-12.7)
[2021-05-14 04:40] LABS: Appearance Urine UA CLEAR; Bilirubin Urine UA NEGATIVE (NEGATIVE); Color Urine UA YELLOW; Glucose Urine UA NEGATIVE (Negative); Ketones Urine UA NEGATIVE (NEGATIVE); Leukocyte Esterase Urine UA TRACE (NEGATIVE); Nitrite Urine UA NEGATIVE (Negative); Occult Blood Urine UA 3+ (Negative); Protein Urine UA NEGATIVE (Negative); Urobilinogen Urine UA 0.2 E.U./dL (0.2)
[2021-05-14 04:43] LABS: pH Urine UA 7.5 (4.5-8.0)
[2021-05-14 04:44] LABS: PTT Partial Thromboplastin Tim 28 SECONDS (26.4-36.2)
[2021-05-14] MEDS: GENTAMICIN 370 MG in SODIUM CHLORIDE 0.9% 100 ML 109.25 ML IV (04:46)
[2021-05-14] MEDS: KETOROLAC 30 MG/ML VIAL 15 MG IV (05:00)
[2021-05-14] MEDS: ONDANSETRON 4 MG/2 ML INJ IV (05:03)
[2021-05-14 05:04] LABS: Bacteria Urine Occasional (0-1); Culture Indicated Urine Specimen Cultured; RBC Urine 5-10/HPF (0-5/HPF); Squamous Epithelial Cell Urine 1-5 /HPF (0-5/HPF); WBC Urine None Seen (0-5/HPF)
[2021-05-14] MEDS: AMPICILLIN 2,000 MG in SODIUM CHLORIDE 0.9% 100 ML 200 ML IV ×2 (09:16→15:12)
[2021-05-14] MEDS: LACTOBACILLUS ACIDOPHILUS TABLET 1 EACH PO ×2 (09:17→15:13)
[2021-05-14] MEDS: HYDROCORTISONE 2.5% OINT 28 GM 1 APPLIC TOP (09:17)
--- NOTE | 2021-05-14 09:50 | PC.NURSE ---
09:16 Patient is resting and doing well, she is shaky but denies any pain. Physical exam completed and WNL. Patient has some discomfort with fundal check but no increased bleeding noted.
--- NOTE | 2021-05-14 10:19 | PM.HP.1 ---
History of Present Illness History of Present Illness Date Patient Seen: 05/14/21 Time Patient Seen: 07:45 Chief complaint: DIZZY, WEAK, WARM, SHAKY Narrative: Pt is a 25yo PPD#2 s/p without complications, here due to rigors. The pt reports that yesterday after getting home from the hospital she relatively quickly started to feel warm and very shaky. She states this was particularly worse prior to getting up to go to the bathroom, which has been diarrhea. The pt had mild nausea, but this resolved relatively quickly. She did have a large meal after getting home, and believes the nausea was more related to that. The shakiness worsened, and the pt states that she generally didn't feel well. She reports having a funny feeling that wasn't good in her lower abdominal area. She wasn't able to describe it well otherwise. She denies any confirmed fever, and did not feel chilled but hot. She denies any chest pain, SOB, dysuria, urinary frequency, leg/calf pain or swelling, abnormal vaginal discharge. Her lochia is still appropriate. The pt is , but denies any breast pain or warmth. The pt came to the ED when the shaking was severe enough that she couldn't cope at home anymore. The pts delivery was uncomplicated. There was a 2nd degree perineal laceration that was repaired. There was no uterine manipulation after delivery. Patient History Medical History Anxiety Chicken pox (~2016) GERD (gastroesophageal reflux disease) (~2017) Migraines (~2019) Scoliosis Shingles (~2019) Surgical History Anesthesia History of removal of nevus [place] teeth extracted (~2017) Family & Social History Family History Mother Hypertension Hyperlipidemia Father Brain malignant neoplasm Stented coronary artery Grandmother Diabetes mellitus Thyroid cancer Cardiac defibrillator in situ Pacemaker Stented coronary artery Psoriasis Grandfather Dementia Pacemaker Hx of detention use of blood thinners Grandmother Unknown family medical history Grandfather Brain embolism and thrombosis Brother No problems noted. Social History: household members significant other lives independently Yes caregiver/support person No Safety & Behavioral: Feels Safe in Current Yes Environment Been Physically Hurt or No Threatened By a Person Tobacco & Substance use: Smoking Status Never smoker alcohol intake former Substance Use Type does not use Meds Home Medications and Allergies Home Medications Medication Instructions Recorded Confirmed Type prenat.vits,crystal,[id number] 1 tab PO DAILY 09/05/20 05/14/21 History breast pump #1 ea 04/14/21 05/14/21 Rx acetaminophen 325 mg tablet 650 mg PO Q6HR PRN #30 tab 05/13/21 05/14/21 Rx ibuprofen 600 mg tablet 600 mg PO Q6HR PRN #30 tab 05/13/21 05/14/21 Rx Allergies Allergy/AdvReac Type Severity Reaction Status Date / Time lactose Allergy Intermediate GI upset & Verified 05/02/21 08:51 pain Exam Vital Signs (past 8 hours): - 05/14/21 02:55 05/14/21 03:27 05/14/21 03:30 Temperature 98.5 F Pulse Rate 109 H 97 H 99 H Respiratory Rate 20 23 15 Blood Pressure 121/82 Pulse Oximetry 99 100 100 05/14/21 04:00 05/14/21 04:30 05/14/21 04:32 Temperature Pulse Rate 115 H 109 H 104 H Respiratory Rate 24 20 Blood Pressure 115/71 Pulse Oximetry 100 100 100 05/14/21 05:00 05/14/21 05:30 05/14/21 05:37 Temperature Pulse Rate 98 H 83 117 H Respiratory Rate 23 21 33 H Blood Pressure 124/65 Pulse Oximetry 98 100 100 05/14/21 06:00 05/14/21 07:16 Temperature 98.1 F Pulse Rate 93 H 97 H Respiratory Rate 23 16 Blood Pressure 105/59 L 111/87 Pulse Oximetry 100 100 Oxygen Delivery Method Room Air Narrative Exam Narrative: Gen: NAD, sitting comfortably in bed, appears very fatigued and slightly pale HEENT: normocephalic, atraumatic, moist mucus membranes CV: RRR, no murmurs Resp: clear to auscultation bilaterally Abd: soft, nondistended, normoactive bowel sounds, fundus firm and below the umbilicus, moderately tender over uterus without rebound/guarding/rigidity Ext: no edema, no calf tenderness : perineal area healing appropriately without discharge, swelling Objective Labs Result Diagrams: 05/14/21 02:30 05/14/21 02:30 Labs: Laboratory Results - last 24 hr 05/14/21 05/14/21 05/14/21 02:30 02:30 02:30 WBC 8.8 RBC 4.11 Hgb 12.4 Hct 36.1 MCV 87.9 MCH 30.1 MCHC 34.3 RDW 14.4 Plt Count 245 Neut % (Auto) 71.2 Lymph % (Auto) 20.9 L [place] % (Auto) 7.4 Eos % (Auto) 0.3 L Baso % (Auto) 0.2 Neut # (Auto) 6200 Lymph # (Auto) 1800 [place] # (Auto) 600 Eos # (Auto) 0 Baso # (Auto) 0 PT 10.2 INR 0.9 APTT Sodium 139 Potassium 4.0 Chloride 111 H Carbon Dioxide 25 BUN 5 L Creatinine 0.49 L Estimated GFR > 60.0 BUN/Creatinine Ratio 10.2 Glucose 119 H Lactate Calcium 9.5 Total Bilirubin 0.4 AST 28 ALT 13 Alkaline Phosphatase 123 Total Creatine Kinase 134 CK-MB (CK-2) 1.72 CK-MB (CK-2) Rel Index 1.3 L Troponin I < 0.012 Total Protein 6.5 Albumin 3.7 Globulin 2.8 Albumin/Globulin Ratio 1.3 Procalcitonin 0.05 Urine Color Urine Appearance Urine pH Ur Specific [place] Urine Protein Urine Glucose (UA) Urine Ketones Urine Occult Blood Urine Nitrate Urine Bilirubin Urine Urobilinogen Ur Leukocyte Esterase Urine RBC Urine WBC Ur Squamous Epith Cells Urine Bacteria Ur Culture Indicated? SARS-CoV-2 (PCR) 05/14/21 05/14/21 05/14/21 02:30 02:30 03:41 WBC RBC Hgb Hct MCV MCH MCHC RDW Plt Count Neut % (Auto) Lymph % (Auto) [place] % (Auto) Eos % (Auto) Baso % (Auto) Neut # (Auto) Lymph # (Auto) [place] # (Auto) Eos # (Auto) Baso # (Auto) PT INR APTT 28 Sodium Potassium Chloride Carbon Dioxide BUN Creatinine Estimated GFR BUN/Creatinine Ratio Glucose Lactate 1.5 Calcium Total Bilirubin AST ALT Alkaline Phosphatase Total Creatine Kinase CK-MB (CK-2) CK-MB (CK-2) Rel Index Troponin I Total Protein Albumin Globulin Albumin/Globulin Ratio Procalcitonin Urine Color Urine Appearance Urine pH Ur Specific [place] Urine Protein Urine Glucose (UA) Urine Ketones Urine Occult Blood Urine Nitrate Urine Bilirubin Urine Urobilinogen Ur Leukocyte Esterase Urine RBC Urine WBC Ur Squamous Epith Cells Urine Bacteria Ur Culture Indicated? SARS-CoV-2 (PCR) Negative 05/14/21 04:31 WBC RBC Hgb Hct MCV MCH MCHC RDW Plt Count Neut % (Auto) Lymph % (Auto) [place] % (Auto) Eos % (Auto) Baso % (Auto) Neut # (Auto) Lymph # (Auto) [place] # (Auto) Eos # (Auto) Baso # (Auto) PT INR APTT Sodium Potassium Chloride Carbon Dioxide BUN Creatinine Estimated GFR BUN/Creatinine Ratio Glucose Lactate Calcium Total Bilirubin AST ALT Alkaline Phosphatase Total Creatine Kinase CK-MB (CK-2) CK-MB (CK-2) Rel Index Troponin I Total Protein Albumin Globulin Albumin/Globulin Ratio Procalcitonin Urine Color Yellow Urine Appearance Clear Urine pH 7.5 Ur Specific [place] 1.010 Urine Protein Negative Urine Glucose (UA) Negative Urine Ketones Negative Urine Occult Blood 3+ H Urine Nitrate Negative Urine Bilirubin Negative Urine Urobilinogen 0.2 Ur Leukocyte Esterase Trace H Urine RBC 5-10/hpf H Urine WBC None seen Ur Squamous Epith Cells 1-5 /hpf Urine Bacteria Occasional (0-1) D Ur Culture Indicated? Specimen cultured SARS-CoV-2 (PCR) Assessment & Plan Assessment and plan (1) Maternal infection, : Status: Acute (2) Spontaneous vaginal delivery: Status: Acute Plan 25yo PPD#2 s/p without complications, presenting with shaking rigors at home. No documented or reported fever. Negative CXR, no evidence mastitis. U/A without significant evidence of UTI - urine culture pending. No swelling suggestive of DVT. Perineum healing appropriately. No evidence of mastitis. Pt does have moderate uterine tenderness, and without other explanation treatment initiated in the ED for endometritis. This was continued at admission, with Clindamycin, Gentamicin, and Ampicillin. Will start probiotic as well due to loose stools. The pt remained afebrile. On further discussion later in the day, the pt further described feeling excessively fatigued and anxious at home. She reported feeling improved overall, but still slightly shaky when standing only. She felt this was more due to fatigue than anything else. The pt also reported having not consumed much food throughout the day. Her symptoms continued to improved after further rest and PO intake. She received multiple doses of Ampicillin and Clindamycin, in addition to one 5mg/kg dose of Gentamicin. Due to the pt never developing a fever, and feeling improved, she was discharged home. Time Spent With Patient Critical Care time: I spent a total of [] minutes of critical care time on this patient's care today; this time is exclusive of procedural time.
--- NOTE | 2021-05-14 11:51 | PC.NURSE ---
11:48 Patient is doing well, she is just resting in bed. Patient states she just feels icky after getting up to the bathroom. Denies any pain.
--- NOTE | 2021-05-14 15:29 | PC.NURSE ---
15:21 Patient is doing well just resting in bed. She states she is starting to feel better but thinks she just maybe overdid it yesterday. I advised her to just take it easy at home, get plenty of rest when able, eat and drink plenty of fluids.
--- NOTE | 2021-05-14 16:10 | PC.NURSE ---
15:55 IV discontinued and dressed. 16:00 Patient doing well, discharged following antibiotics. Patient states she is ready to go home and plans to just rest for a few days. Patient was discharged via wheelchair by nurse with and baby.
== END 2021-05-14 16:04 | disposition home or self-care (01) ==
LOC: ED 04:52 → LABOR 07:26
PROVIDERS: Admitting Provider Specialist; Emergency Provider Emergency Medicine; PCP Family Medicine; Referring Provider Emergency Medicine; Visit Provider Specialist
DX: O98 Maternal infectious and parasitic diseases classifiable elsewhere but complicating pregnancy, childbirth and the puerperium (principal); Z20.822 Contact with and (suspected) exposure to COVID-19
CPT/HCPCS: 36415; 71045; 80053; 81001; 82550; 82553; 83605; 84145; 84484; 85025; 85610; 85730; 87040; 87086; 87635; 93005; 93010; 99284; C9803; G0378; J0290; J1885; J2405

== ENCOUNTER 2021-05-31 20:56 | Emergency (ER) | payer OTHER, SELFPAY ==
[2021-05-14 07:47] VITALS: BMI 29.5
[2021-05-31 21:20] VITALS: BP 107/67; PULSE 100; RESP 17; TEMP 36.6; O2SAT 99; BMI 27.3
--- NOTE | 2021-05-31 22:11 | ED.SKABFB ---
HPI - Skin/Abscess/Foreign Bdy General Chief complaint: Skin/Abscess/Foreign Body Stated complaint: painful lump in breast, flu like symptoms Time Seen by Provider: 05/31/21 20:59 Source: patient Mode of arrival: Ambulatory History of Present Illness HPI narrative: Patient is a 25-year-old female approximately 3 weeks . Is breast-feeding. Over the past 24 hours has noticed a painful left breast with erythema and a lump. She is also having flu-like symptoms to include body aches. She is continuing to breastfeed. She occasionally states that she feels like she empties her left breast after feeding. She does have a pump at home that she uses as well. Related Data Home Medications Medication Instructions Recorded Confirmed prenat.vits,crystal,[id number] 1 tab PO DAILY 09/05/20 05/14/21 Previous Rx's Medication Instructions Recorded breast pump #1 ea 04/14/21 acetaminophen 325 mg tablet 650 mg PO Q6HR PRN #30 tab 05/13/21 ibuprofen 600 mg tablet 600 mg PO Q6HR PRN #30 tab 05/13/21 cephalexin 500 mg capsule 500 mg PO QID 10 Days #40 cap 05/31/21 Allergies Allergy/AdvReac Type Severity Reaction Status Date / Time lactose Allergy Intermediate GI upset & Verified 05/31/21 21:23 pain Review of Systems Constitutional Constitutional: Reports chills, Reports fatigue and Reports malaise Integumentary/Breasts Skin/Breast: Reports system reviewed and no additional complaints, except as documented and Reports as per HPI Endocrine Endocrine: Reports fatigue Hematologic/Lymphatic On Anticoagulants: No Patient History Medical History Anxiety Chicken pox (~2016) GERD (gastroesophageal reflux disease) (~2017) Migraines (~2018) Scoliosis Shingles (~2019) Surgical History Anesthesia History of removal of nevus [place] teeth extracted (~2017) Family History Mother Hypertension Hyperlipidemia Father Brain malignant neoplasm Stented coronary artery Grandmother Diabetes mellitus Thyroid cancer Cardiac defibrillator in situ Pacemaker Stented coronary artery Psoriasis Grandfather Dementia Pacemaker Hx of filler leaf cutter long use of blood thinners Grandmother Unknown family medical history Grandfather Brain embolism and thrombosis Brother No problems noted. Social History marital status: unmarried,living together number of children: 0 household members: significant other lives independently: Yes caregiver/support person: No housing: house pets and animals: Yes (1 dog, 3 cats: aware & safe. 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 ) frequency: daily duration: > 90 minutes/day Smoking Status: Never smoker Alcohol type: other Substance Use Type: does not use Exam Initial Vital Signs Initial Vital Signs: Vital Signs Temperature 98 F 05/31/21 21:20 Pulse Rate 100 H 05/31/21 21:20 Respiratory Rate 17 05/31/21 21:20 Blood Pressure 107/67 05/31/21 21:20 Pulse Oximetry 99 05/31/21 21:20 HENMT Head: normal to inspection and normocephalic Chest Other: Inspection of the left breast with personal lines insurance agent in room shows that on the inferior medial portion there is redness and tenderness to palpation. There is a 1 cm x 1 cm fullness under this that is approximately 1 cm under the skin. Resp Effort & Inspection: normal respiratory effort Skin Other: Area of redness on the inferior medial aspect of the left breast. No drainage. Extrem General: normal to inspection Psych Appearance: grossly normal and well kempt Course Orders Ordered: Discontinued Medications Cephalexin HCl (Cephalexin 250 Mg Capsule) 500 mg PO NOW ONE Stop: 05/31/21 22:17 Last Admin: 05/31/21 22:24 Dose: 500 mg Documented by: AL[place] Vital Signs Vital signs: Vital Signs - 8 hr 05/31/21 21:20 05/31/21 22:38 Temperature 98 F Pulse Rate 100 H 97 H Respiratory Rate 17 15 Blood Pressure 107/67 105/63 Pulse Oximetry 99 98 MDM - Skin/Abscess/Foreign Bdy MDM Narrative Medical decision making narrative: Patient has a history and physical exam consistent with mastitis. She is nontoxic appearing. She does have a 1 cm x 1 cm area of fullness that appears to be 1 cm under the skin. We did discuss the possibility that this is a small abscess versus is a milk duct. Based on her presentation today I did not recommend incision and drainage due to the location of it. We did discuss the possibility of a needle aspiration which she would like to hold on that for now. The plan will be is to start her on antibiotics. She will continue to breastfeed. She can take Tylenol and ibuprofen for discomfort and body aches. She was informed that if her symptoms worsen she did need to return to the emergency department as a breast abscess is always a possibility any situations. She expressed understanding and agreement. Discharge Plan Departure Patient Disposition: Home Clinical Impression: Mastitis Instructions: DI for Mastitis Activity Restrictions/Additional Instructions: We do recommend that you continue to breast feed like normal. We need to start you on antibiotics and you were given a 1st dose here in the ER. A prescription was sent to [facility] in [place]. They are open tomorrow from 01-01. Take it as directed. Keep all of your scheduled follow-up appointments. Return to the emergency department for any new or worsening symptoms. Prescriptions: New cephalexin 500 mg capsule 500 mg PO QID 10 Days Qty: 40 0RF No Action (DME) breast pump Device See Rx Instructions .ROUTE .MEDSUPPLY Qty: 1 0RF Rx Instructions: As directed prenat.vits,crystal,[id number] Tablet 1 tab PO DAILY 0RF acetaminophen 325 mg Tablet 650 mg PO Q6HR PRN (Reason: Pain, Mild (1-3)) Qty: 30 0RF ibuprofen 600 mg Tablet 600 mg PO Q6HR PRN (Reason: Pain, Mild (1-3)) Qty: 30 0RF Referrals: Newlon,Jacqueline, MD [Primary Care Provider] -
[2021-05-31] MEDS: cephALEXin 250 MG CAPSULE 500 MG PO (22:24)
[2021-05-31 22:38] VITALS: BP 105/63; PULSE 97; RESP 15; O2SAT 98
--- NOTE | 2021-05-31 22:44 | PC.NURSE ---
Pt newly . now with pain to left breast.
== END 2021-05-31 22:40 | disposition home or self-care (01) ==
PROVIDERS: Emergency Provider Emergency Medicine; PCP Family Medicine
DX: O91.22 Nonpurulent mastitis associated with the puerperium (principal)
CPT/HCPCS: 99283

== ENCOUNTER → 2021-06-05 12:20 | Outpatient (CLI) | payer OTHER, SELFPAY ==
[2021-05-14 07:47] VITALS: BMI 29.5
--- NOTE | 2021-06-05 12:21 | DI.RAD.S_ITS ---
PROCEDURE: XR LUMBAR SPINE 2-3V INDICATIONS: lumbar pain TECHNIQUE: 3 views of the lumbar spine were acquired. COMPARISON: None. FINDINGS: Bones: 5 [id number] vertebrae are present. There is normal bony alignment. No vertebral body compression fractures. No suspicious bony lesions. Soft tissues: Overlying bowel gas pattern is normal. No suspicious soft tissue calcifications. IMPRESSION: Normal lumbar spine radiographs Approved by: Harpreet Sanchez M.D. on 06/05/2021 at 15:31
--- NOTE | 2021-06-05 12:21 | DI.RAD.S_ITS ---
PROCEDURE: XR SACRUM COCCYX MIN 2V INDICATIONS: lumbar pain TECHNIQUE: 3 views of the sacrum and coccyx acquired. COMPARISON: None. FINDINGS: Bones: No fractures or dislocations. No suspicious bony lesions. Soft tissues: Visualized bowel gas pattern is normal. No suspicious soft tissue densities. IMPRESSION: Normal sacral and coccygeal radiographs Approved by: Harpreet Sanchez M.D. on 06/05/2021 at 15:30
== END ==
PROVIDERS: PCP Family Medicine; Referring Provider Nurse Practitioner Family; Visit Provider Nurse Practitioner Family
DX: M54.50 Low back pain, unspecified (principal)
CPT/HCPCS: 72100; 72220

== ENCOUNTER 2021-08-09 20:05 | Emergency (ER) | payer OTHER, SELFPAY ==
[2021-06-10 08:43] VITALS: BMI 29.5
[2021-08-09 20:08] VITALS: BP 127/70; PULSE 91; RESP 14; TEMP 36.8; O2SAT 96; BMI 26.9
[2021-08-09 20:33] VITALS: PULSE 89; O2SAT 99
[2021-08-09 20:34] VITALS: BP 129/78; PULSE 88; O2SAT 99
[2021-08-09 20:41] LABS: Add Manual Diff / Slide Review NO; Basophils Absolute Auto 100 /uL (0-100); Eosinophils Absolute Auto 100 /uL (0-450); Eosinophils Percent Auto 1.9 % (2-4); Hemoglobin 12.8 g/dL (12.0-16.0); Lymphocytes Absolute Auto 2700 /uL (1100-4500); Lymphocytes Percent Auto 35.3 % (25-40); Mean Corpuscular HGB Conc 34.7 % (30-36); Mean Corpuscular Hemoglobin 29.7 PG (26-34); Mean Corpuscular Volume 85.6 fL (80-100); Monocytes Absolute Auto 800 /uL (0-900); Monocytes Percent Auto 10.4 % (3-14); Neutrophils Absolute Auto 3900 /uL (1500-7000); Neutrophils Percent Auto 51.4 % (50-75); Platelet Count 275 X10^3/uL (150-400); Red Blood Cell Count 4.32 X10^6/uL (4.0-5.2); White Blood Cell Count 7.5 X10^3/uL (4.5-11.0)
[2021-08-09 20:51] LABS: Alanine Aminotransferase 25 IU/L (<35); Albumin 4.5 g/dL (3.5-5.0); Albumin Globulin Ratio 1.5 (1.0-2.8); Alkaline Phosphatase 92 U/L (38-126); Aspartate Aminotransferase 25 IU/L (14-36); BUN Creatinine Ratio 21.1 (6-22); Bilirubin Total 0.4 mg/dL (0.2-1.3); Blood Urea Nitrogen 15 mg/dL (7-17); Calcium 9.3 mg/dL (8.4-10.2); Carbon Dioxide 29 mmol/L (22-32); Chloride 104 mmol/L (98-107); Estimated Glomerular Filt Rate > 60 mL/min (>60); Globulin 3.1 g/dL (1.7-4.1); Glucose 96 mg/dL (70-100); HEMOLYSIS < 15 (0-50); Lipase 87 U/L (23-300); Potassium 3.9 mmol/L (3.4-5.1); Sodium 141 mmol/L (137-145); Total Protein 7.6 g/dL (6.3-8.2)
--- NOTE | 2021-08-09 21:19 | DI.US.S_ITS ---
PROCEDURE: US PELVIC COMPLETE INDICATIONS: RLQ PAIN; OVARY VS APPENDICITIS TECHNIQUE: Real-time scanning was performed of the pelvic organs, with image documentation. Additional endovaginal scanning was necessary due to incomplete visualization of the adnexal and endometrial structures by transabdominal scanning. COMPARISON: None. FINDINGS: Uterus: Uterus is anteverted and normal in size at 3.6 x 5.6 x 6.7 cm. The myometrium is homogeneous. The endometrium measures 4.0 mm combined thickness. No abnormal fluid collection is seen within the peritoneal space or uterus. Ovaries: The right ovary measures 1.5 x 2.9 x 3.3 cm. The left ovary measures 1.5 x 2.8 x 2.4 cm,. The ovaries have a normal sonographic appearance. No adnexal masses are seen. Other: No pathologic free abdominal or pelvic fluid. IMPRESSION: Source of current symptoms is not seen. Appendix not identified, no ovarian torsion or dominant cyst is found. Dictated by: Ruben Barillas M.D. on 08/09/2021 at 22:09 Approved by: Ruben Barillas M.D. on 08/09/2021 at 22:12
[2021-08-09 21:25] LABS: Bacteria Urine Moderate (10-30); Culture Indicated Urine Specimen Cultured; RBC Urine None Seen (0-5/HPF); Squamous Epithelial Cell Urine 1-5 /HPF (0-5/HPF); WBC Urine 5-10/HPF (0-5/HPF)
--- NOTE | 2021-08-09 21:51 | ED.ABDPAIN ---
HPI - Abdominal Pain General Chief Complaint: Abdominal Pain Stated Complaint: Sharp pain in lower ABD Time Seen by Provider: 08/09/21 20:15 Source: patient Mode of arrival: Ambulatory History of Present Illness HPI narrative: 26-year-old female nonsmoker with noncontributory chronic medical problems presents with her and new child with a chief complaint of gradually worsening right lower quadrant pain since yesterday. She states that it seems to be worse when she moves and improves with rest. She denies any radiation of the pain. She is not dizzy nor weak or lightheaded. She denies runny nose, sore throat or cough. She has no chest pain or shortness of breath. She is nauseated but denies any vomiting states there is no significant change in her appetite. She denies dysuria, frequency or urgency. She delivered a child 3 months ago vaginally and is actively breast-feeding Related Data Home Medications Medication Instructions Recorded Confirmed prenat.vits,crystal,[id number] 1 tab PO DAILY 09/05/20 07/22/21 Previous Rx's Medication Instructions Recorded breast pump #1 ea 04/14/21 ibuprofen 600 mg tablet 600 mg PO Q6HR PRN #30 tab 05/13/21 clotrimazole 1 % topical ointment 1 applic TOPICAL BID #56.7 g 07/18/21 norethindrone (contraceptive) 0.35 0.35 mg PO DAILY #28 tab 07/18/21 mg tablet (Ortho Micronor) nystatin 100,000 unit/gram topical 1 applic TOPICAL BID #30 g 07/18/21 cream citalopram 10 mg tablet 15 mg PO DAILY #45 tab 07/22/21 cephalexin 500 mg capsule 500 mg PO BID #10 cap 08/09/21 Allergies Allergy/AdvReac Type Severity Reaction Status Date / Time lactose Allergy Intermediate GI upset & Verified 08/09/21 20:13 pain Review of Systems Review of Systems Narrative: GENERAL: See HPI HEENT: Denies sinus pain, ear pain, sore throat, difficulty swallowing, dizziness. RESPIRATORY: Denies dyspnea, cough, wheezing, hemoptysis, sputum. CARDIOVASCULAR: Denies chest pain, palpitations, orthopnea, edema, GASTROINTESTINAL: See HPI : Denies dysuria, frequency, incontinence, hematuria, urinary retention. MUSCULOSKELETAL: denies weakness, joint pain, or bony pain SKIN: Denies rash, skin lesions, or other NEUROLOGIC: Denies weakness, headache, numbness, change in speech, confusion, seizures, incoordination. PSYCHIATRIC: No concerning psychosocial issues. 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 Social History marital status: unmarried,living together number of children: 0 household members: significant other lives independently: Yes caregiver/support person: No housing: house pets and animals: Yes (1 dog, 3 cats: aware & safe. 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 ) ruth/[employer]: [employer] special ruth needs: No seatbelt use: always working smoke detector in home: Yes fire extinguisher in home: Yes carbon monox detector in home: Yes firearms in home: Yes firearms unloaded and locked: Yes do you feel safe at home: Yes Smoking Status: Never smoker second hand exposure: No alcohol intake: former substance use type: does not use during the past year weight has: increased > 10 lbs well-balanced diet: daily or most days caffeine: Yes (2-3 cups a week total.) Type(s) of exercise: normal ROM and activity frequency: daily duration: > 90 minutes/day Smoking Status: Never smoker alcohol intake frequency: holidays/special occasions only Alcohol type: other Substance Use Type: does not use Exam Narrative Exam Narrative: GENERAL: [26] year old patient appears stated age. Well-developed patient, in mild distress. HEAD: Atraumatic. Normocephalic. EYES: Pupils equal round and reactive. Extraocular motions intact. No scleral icterus. No injection or drainage. ENT: Nose without bleeding, purulent drainage. Throat without erythema, tonsillar hypertrophy or exudate. Airway patent. NECK: Trachea midline. Non tender CARDIOVASCULAR: Regular rate and rhythm without murmurs, gallops, or rubs. RESPIRATORY: Clear to auscultation. Breath sounds equal bilaterally. No wheezes, rales, or rhonchi. GASTROINTESTINAL: Abdomen soft, tender in the right lower quadrant, nondistended. Positive Rovsing's and heel tap EXTREMITIES: No edema or joint tenderness. BACK: Nontender without deformity or crepitance. No flank tenderness. NEURO: AOx3. SKIN: No rash or erythema of visible areas Initial Vital Signs Initial Vital Signs: Vital Signs Temperature 98.2 F 08/09/21 20:08 Pulse Rate 91 H 08/09/21 20:08 Respiratory Rate 14 08/09/21 20:08 Blood Pressure 127/70 08/09/21 20:08 Pulse Oximetry 96 08/09/21 20:08 Course Orders Ordered: ED Orders 08/09/21 20:11 EKG-12 Lead Stat 08/09/21 20:22 Urine Culture Stat Urine Microscopic Stat 08/09/21 20:30 Complete Blood Count AUTO DIFF Stat Comprehensive Metabolic Panel Stat Lipase Stat 08/09/21 21:19 US pelvic complete Stat Discontinued Medications Cefazolin Sodium (Cephalexin 250 Mg Prepack) 1 bottle MIS SEEINSTR ONE Stop: 08/09/21 22:48 Last Admin: 08/09/21 23:24 Dose: 500 mg Documented by: STARR Vital Signs Vital signs: Vital Signs - 8 hr 08/09/21 20:08 08/09/21 20:33 08/09/21 20:34 Temperature 98.2 F Pulse Rate 91 H 89 88 Respiratory Rate 14 Blood Pressure 127/70 129/78 Pulse Oximetry 96 99 99 08/09/21 23:18 Temperature Pulse Rate 80 Respiratory Rate Blood Pressure 113/68 Pulse Oximetry 99 MDM - Abdominal Pain Lab Data Result diagrams: 08/09/21 20:30 08/09/21 20:30 Labs: Lab Results 08/09/21 08/09/21 08/09/21 Range/Units 20:22 20:30 20:30 WBC 7.5 (4.5-11.0) X10^3/uL RBC 4.32 (4.0-5.2) X10^6/uL Hgb 12.8 (12.0-16.0) g/dL Hct 37.0 (36-46) % MCV 85.6 (80-100) fL MCH 29.7 (26-34) PG MCHC 34.7 (30-36) % RDW 14.0 (11.6-14.8) % Plt Count 275 (150-400) X10^3/uL Neut % (Auto) 51.4 (50-75) % Lymph % (Auto) 35.3 (25-40) % [place] % (Auto) 10.4 (3-14) % Eos % (Auto) 1.9 L (2-4) % Baso % (Auto) 1.0 (0-2) % Neut # (Auto) 3900 (3960-6881) /uL Lymph # (Auto) 2700 (6851-0916) /uL [place] # (Auto) 800 (0-900) /uL Eos # (Auto) 100 (0-450) /uL Baso # (Auto) 100 (0-100) /uL Sodium 141 (137-145) mmol/L Potassium 3.9 (3.4-5.1) mmol/L Chloride 104 (98-107) mmol/L Carbon Dioxide 29 (22-32) mmol/L BUN 15 (7-17) mg/dL Creatinine 0.71 (0.52-1.04) mg/dL Estimated GFR > 60 (>60) mL/min BUN/Creatinine Ratio 21.1 (6-22) Glucose 96 (70-100) mg/dL Calcium 9.3 (8.4-10.2) mg/dL Total Bilirubin 0.4 (0.2-1.3) mg/dL AST 25 (14-36) IU/L ALT 25 (<35) IU/L Alkaline Phosphatase 92 (38-126) U/L Total Protein 7.6 (6.3-8.2) g/dL Albumin 4.5 (3.5-5.0) g/dL Globulin 3.1 (1.7-4.1) g/dL Albumin/Globulin Ratio 1.5 (1.0-2.8) Lipase 87 (23-300) U/L Urine RBC None seen (0-5/HPF) Urine WBC 5-10/hpf H (0-5/HPF) Ur Squamous Epith Cells 1-5 /hpf (0-5/HPF) Urine Bacteria Moderate (10-30) H (None) Ur Culture Indicated? 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 Procedure: US pelvic complete Ordering Provider: Bernardino Whitten D.O. PROCEDURE:? US PELVIC COMPLETE ? INDICATIONS:? RLQ PAIN; OVARY VS APPENDICITIS ? TECHNIQUE:? Real-time scanning was performed of the pelvic organs, with image documentation.? Additional endovaginal scanning was necessary due to incomplete visualization of the adnexal and endometrial structures by transabdominal scanning.? ? COMPARISON:? None. ? FINDINGS:? ?? Uterus:? Uterus is anteverted and normal in size at 3.6 x 5.6 x 6.7 cm. The myometrium is homogeneous. ? The endometrium measures 4.0 mm combined thickness.? No abnormal fluid collection is seen within the peritoneal space or uterus. ? Ovaries:? The right ovary measures 1.5 x 2.9 x 3.3 cm. The left ovary measures 1.5 x 2.8 x 2.4 cm,. The ovaries have a normal sonographic appearance.? No adnexal masses are seen. ? Other:? No pathologic free abdominal or pelvic fluid. ? ? IMPRESSION:? Source of current symptoms is not seen.? Appendix not identified, no ovarian torsion or dominant cyst is found. ? Dictated by: Ruben Barillas M.D. on 08/09/2021 at 22:09 ? ? Approved by: Ruben Barillas M.D. on 08/09/2021 at 22:12 ? MDM Narrative Medical decision making narrative: Patient's history and physical raise the question possible ovarian cyst versus kidney stone versus appendicitis versus other. Her labs are reassuring, she has no fever, vomiting, loss of appetite. Ultrasound did not visualize the appendix, hour we discussed at length, having an excellent session of shared decision making regarding how to proceed. CT was discussed but we elected to hold off for now, treat the urinary tract infection, close follow-up and short threshold for return. Discharge Plan Departure Patient Disposition: Home Clinical Impression: UTI (urinary tract infection), Acute right lower quadrant pain Instructions: DI for Urinary Tract Infection (UTI), DI for Abdominal Pain-Adult Activity Restrictions/Additional Instructions: *You have been diagnosed with [right lower quadrant pain and urinary tract infection. As we discussed your history and physical exam are reassuring and labs show no elevated white blood cell count. Ultrasound had no significant findings. Though this could still be an atypical presentation of an early appendicitis he would be rare given lack of fever, change in appetite or elevated white blood cell count. *What to do: *Please continue to take your regular medications as directed. [x ] New medication prescriptions sent to your pharmacy: [[facility] ] [ ] New medication written as a paper prescription [ ] No new medications given *Please follow up with your primary care provider in 2-3 days, call for an appointment. Let them know you were seen in the Emergency Department and that we ask that you be seen in follow up. We will electronically transmit a record of today's note if your PCP is in our system *If you do not have a primary care provider please contact the [facility] Resource line at [phone]. They will ask some questions about your medical history and help get you set up with a doctor in the community. *Return to Emergency Department if you should have any new, worsening or concerning symptoms, such as [fever greater than 101 F, shaking chills, worsening pain, persistent vomiting or other bothersome symptoms] Prescriptions: New cephalexin 500 mg capsule 500 mg PO BID Qty: 10 0RF No Action citalopram 10 mg tablet 15 mg PO DAILY Qty: 45 3RF Rx Instructions: take on tab daily clotrimazole 1 % ointment 1 applic topical BID Qty: 56.7 0RF Rx Instructions: Prior to each feeding, visible residue should be removed, reapplied after feeding (DME) breast pump Device See Rx Instructions .ROUTE .MEDSUPPLY Qty: 1 0RF Rx Instructions: As directed nystatin 100,000 unit/gram cream 1 applic topical BID Qty: 30 1RF norethindrone (contraceptive) [Ortho Micronor] 0.35 mg tablet 0.35 mg PO DAILY Qty: 28 6RF prenat.vits,crystal,[id number] Tablet 1 tab PO DAILY 0RF ibuprofen 600 mg Tablet 600 mg PO Q6HR PRN (Reason: Pain, Mild (1-3)) Qty: 30 0RF Referrals: Jacqueline Andre MD [Primary Care Provider] -
[2021-08-09 23:18] VITALS: BP 113/68; PULSE 80; O2SAT 99
[2021-08-09] MEDS: cephALEXin 250 MG PREPACK 1 BOTTLE MISC (23:24)
== END 2021-08-09 23:26 | disposition home or self-care (01) ==
PROVIDERS: Emergency Provider Emergency Medicine; PCP Family Medicine
DX: N39.0 Urinary tract infection, site not specified (principal); R10.31 Right lower quadrant pain
CPT/HCPCS: 36415; 76830; 76856; 80053; 81003; 81015; 81025; 83690; 85025; 87086; 93005; 99284

== ENCOUNTER 2021-08-11 11:45 | Emergency (ER) | payer OTHER, SELFPAY ==
[2021-06-10 08:43] VITALS: BMI 29.5
[2021-08-11 12:12] VITALS: BP 120/68; PULSE 95; RESP 16; TEMP 36.3; O2SAT 100; BMI 26.6
--- NOTE | 2021-08-11 12:19 | DI.CT.S_ITS ---
PROCEDURE: CT ABDOMEN PELVIS W CON INDICATIONS: LOWER RIGHT QUAD PAIN TECHNIQUE: After the administration of intravenous contrast, axial sections acquired from the lung bases to the pubic symphysis. Coronal and sagittal reformats were performed. For radiation dose reduction, the following was used: automated exposure control, adjustment of mA and/or kV according to patient size. COMPARISON: None. FINDINGS: Image quality: Excellent. Lung bases: Unremarkable. Heart: No significant findings. ABDOMEN: Liver: Unremarkable. Gallbladder: Is within normal limits Biliary ducts: Unremarkable. Pancreas: Unremarkable. Spleen: Unremarkable. Adrenal Glands: Unremarkable. Kidneys and Ureters: Unremarkable. Stomach and Bowel: There is a small hiatal hernia. Stomach, small bowel loops, and colon are unremarkable. Normal appendix. Peritoneum: No abnormal intraperitoneal fluid. No free air. Ventral Wall: No hernias. Abdominal Nodes: No retroperitoneal or mesenteric adenopathy by size criteria. There are multiple mildly prominent subcentimeter mesenteric lymph nodes. Vessels: Aorta and inferior vena cava are normal in size. PELVIS: Pelvic Organs: Unremarkable. Bladder: Urinary bladder is decompressed. Pelvic Nodes: No enlarged lymph nodes. Miscellaneous: No hernias are seen. Bones: Unremarkable. IMPRESSION: 1. Mildly prominent mesenteric lymph nodes suggestive mesenteric adenitis. 2. Normal appendix. 3. Small hiatal hernia. Dictated by: Dex Solano M.D. on 08/11/2021 at 14:01 Approved by: Dex Solano M.D. on 08/11/2021 at 14:10
[2021-08-11 12:25] LABS: Add Manual Diff / Slide Review NO; Basophils Absolute Auto 100 /uL (0-100); Basophils Percent Auto 1.3 % (0-2); Eosinophils Absolute Auto 100 /uL (0-450); Eosinophils Percent Auto 1.9 % (2-4); Hematocrit 39.1 % (36-46); Hemoglobin 13.6 g/dL (12.0-16.0); Lymphocytes Absolute Auto 2400 /uL (1100-4500); Lymphocytes Percent Auto 34.3 % (25-40); Mean Corpuscular HGB Conc 34.8 % (30-36); Mean Corpuscular Hemoglobin 29.7 PG (26-34); Mean Corpuscular Volume 85.3 fL (80-100); Monocytes Absolute Auto 500 /uL (0-900); Monocytes Percent Auto 7.8 % (3-14); Neutrophils Absolute Auto 3800 /uL (1500-7000); Neutrophils Percent Auto 54.7 % (50-75); Platelet Count 272 X10^3/uL (150-400); Red Blood Cell Count 4.58 X10^6/uL (4.0-5.2); Red Cell Distribution Width 14.3 % (11.6-14.8); White Blood Cell Count 6.9 X10^3/uL (4.5-11.0)
[2021-08-11 12:32] LABS: INR 1.1 (0.9-1.3)
[2021-08-11 12:35] LABS: PTT Partial Thromboplastin Tim 37 SECONDS (26.4-36.2)
[2021-08-11 12:36] LABS: Chloride 104 mmol/L (98-107); HEMOLYSIS < 15 (0-50)
[2021-08-11 12:39] LABS: Alanine Aminotransferase 27 IU/L (<35); Albumin Globulin Ratio 1.5 (1.0-2.8); Alkaline Phosphatase 95 U/L (38-126); Aspartate Aminotransferase 33 IU/L (14-36); BUN Creatinine Ratio 21.7 (6-22); Bilirubin Total 0.6 mg/dL (0.2-1.3); Blood Urea Nitrogen 15 mg/dL (7-17); Calcium 9.3 mg/dL (8.4-10.2); Carbon Dioxide 27 mmol/L (22-32); Estimated Glomerular Filt Rate > 60 mL/min (>60); Globulin 3.4 g/dL (1.7-4.1); Glucose 90 mg/dL (70-100); Lipase 59 U/L (23-300); Potassium 3.9 mmol/L (3.4-5.1); Sodium 140 mmol/L (137-145); Total Protein 8.4 g/dL (6.3-8.2)
--- NOTE | 2021-08-11 12:57 | ED_ITS ---
HPI - Abdominal Pain General Chief Complaint: Abdominal Pain Stated Complaint: abd pain Time Seen by Provider: 08/11/21 12:18 History of Present Illness HPI narrative: 26 Female with no past medical history presenting today with right lower quadrant pain. She was seen evaluated here on August 09 which had pelvic ultrasound blood work. Discussed about CT however she declined at that time. However pain has gotten progressively worse. She says that is actually radiating up. No nausea vomiting. No fevers. She denies any chest pain or shortness of breath. Pelvic ultrasound did not identify appendix or ovarian cyst on August 09. Related Data Home Medications Medication Instructions Recorded Confirmed prenat.vits,crystal,zxi-fzqi-peati 1 tab PO DAILY 09/05/20 07/22/21 Previous Rx's Medication Instructions Recorded breast pump #1 ea 04/14/21 ibuprofen 600 mg tablet 600 mg PO Q6HR PRN #30 tab 05/13/21 clotrimazole 1 % topical ointment 1 applic TOPICAL BID #56.7 g 07/18/21 norethindrone (contraceptive) 0.35 0.35 mg PO DAILY #28 tab 07/18/21 mg tablet (Ortho Micronor) nystatin 100,000 unit/gram topical 1 applic TOPICAL BID #30 g 07/18/21 cream citalopram 10 mg tablet 15 mg PO DAILY #45 tab 07/22/21 cephalexin 500 mg capsule 500 mg PO BID #10 cap 08/09/21 Allergies Allergy/AdvReac Type Severity Reaction Status Date / Time lactose Allergy Intermediate GI upset & Verified 08/11/21 10:25 pain Review of Systems Review of Systems Narrative: GENERAL: Denies chills, fatigue, malaise, fever, sweats, travel HEENT: Denies sinus pain, ear pain, sore throat, difficulty swallowing, neck pain RESPIRATORY: Denies dyspnea, cough, wheezing, hemoptysis, sputum. CARDIOVASCULAR: Denies chest pain, palpitations, orthopnea, edema GASTROINTESTINAL: See HPI : Denies dysuria, frequency, incontinence, hematuria, urinary retention, flank pain. MUSCULOSKELETAL: Denies weakness, joint pain, or bony pain SKIN: No rash, no erythema, no pruritus NEUROLOGIC: Denies weakness, dizziness, headache, numbness, change in speech, confusion PSYCHIATRIC: No concerning psychosocial issues. 12 point review of systems is negative except for those stated above and HPI Patient History Medical History Anxiety Chicken pox (~2016) GERD (gastroesophageal reflux disease) (~2017) Migraines (~2019) anxiety Scoliosis Shingles (~2019) Surgical History Anesthesia History of removal of nevus [place] teeth extracted (~2017) Family History Mother Hypertension Hyperlipidemia Father Brain malignant neoplasm Stented coronary artery Grandmother Diabetes mellitus Thyroid cancer Cardiac defibrillator in situ Pacemaker Stented coronary artery Psoriasis Grandfather Dementia Pacemaker Hx of ocean transportation intermediary use of blood thinners Grandmother Unknown family medical history Grandfather Brain embolism and thrombosis Brother No problems noted. Social History marital status: unmarried,living together number of children: 0 household members: significant other lives independently: Yes caregiver/support person: No housing: house pets and animals: Yes (1 dog, 3 cats: aware & safe. 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 ) ruth/buddhism: Confucianist special ruth needs: No seatbelt use: always working smoke detector in home: Yes fire extinguisher in home: Yes carbon monox detector in home: Yes firearms in home: Yes firearms unloaded and locked: Yes do you feel safe at home: Yes Smoking Status: Never smoker second hand exposure: No alcohol intake: former substance use type: does not use during the past year weight has: increased > 10 lbs well-balanced diet: daily or most days caffeine: Yes (2-3 cups a week total.) Type(s) of exercise: normal ROM and activity frequency: daily duration: > 90 minutes/day Smoking Status: Never smoker alcohol intake frequency: holidays/special occasions only Alcohol type: other Substance Use Type: does not use Exam Initial Vital Signs Initial Vital Signs: Vital Signs Temperature 97.4 F L 08/11/21 12:12 Pulse Rate 95 H 08/11/21 12:12 Respiratory Rate 16 08/11/21 12:12 Blood Pressure 120/68 08/11/21 12:12 Pulse Oximetry 100 08/11/21 12:12 GENERAL: Alert well-appearing 26-year-old female in no acute] distress. HEENT: Head atraumatic,EOMI, pupils reactive, face symmetric, [moist] mucous membranes CARDIOVASCULAR: Regular rate and rhythm without murmurs, rubs or gallops. RESPIRATORY: Breath sounds equal bilaterally, no wheezes rales or rhonchi. ABDOMEN: Soft, tender right lower quadrant with mild guarding no rebound positive Rovsing no right upper quadrant pain EXTREMITIES: Normal range of motion, no clubbing or edema. Neurovascularly intact NEUROLOGICAL: Alert and oriented x4. SKIN: Warm, dry, no laceration, no petechiae, no rashes or lesions. Course Orders Ordered: ED Orders 08/11/21 12:15 Complete Blood Count AUTO DIFF Stat Comprehensive Metabolic Panel Stat Lipase Stat Partial Thromboplastin Time Stat Prothrombin Time INR Stat 08/11/21 12:19 CT abdomen pelvis w con Stat 08/11/21 12:43 Urine Culture Stat Urine Microscopic Stat Vital Signs Vital signs: Vital Signs - 8 hr 08/11/21 12:12 08/11/21 14:54 Temperature 97.4 F L Pulse Rate 95 H 78 Respiratory Rate 16 Blood Pressure 120/68 112/60 Pulse Oximetry 100 98 MDM - Abdominal Pain Lab Data Result diagrams: 08/11/21 12:15 08/11/21 12:15 Labs: Lab Results 08/11/21 08/11/21 08/11/21 Range/Units 12:15 12:15 12:15 WBC 6.9 (4.5-11.0) X10^3/uL RBC 4.58 (4.0-5.2) X10^6/uL Hgb 13.6 (12.0-16.0) g/dL Hct 39.1 (36-46) % MCV 85.3 (80-100) fL MCH 29.7 (26-34) PG MCHC 34.8 (30-36) % RDW 14.3 (11.6-14.8) % Plt Count 272 (150-400) X10^3/uL Neut % (Auto) 54.7 (50-75) % Lymph % (Auto) 34.3 (25-40) % [place] % (Auto) 7.8 (3-14) % Eos % (Auto) 1.9 L (2-4) % Baso % (Auto) 1.3 (0-2) % Neut # (Auto) 3800 (7986-1389) /uL Lymph # (Auto) 2400 (4473-5037) /uL [place] # (Auto) 500 (0-900) /uL Eos # (Auto) 100 (0-450) /uL Baso # (Auto) 100 (0-100) /uL PT 12.0 (10.1-12.7) SECONDS INR 1.1 (0.9-1.3) APTT 37 H D (26.4-36.2) SECONDS Sodium 140 (137-145) mmol/L Potassium 3.9 (3.4-5.1) mmol/L Chloride 104 (98-107) mmol/L Carbon Dioxide 27 (22-32) mmol/L BUN 15 (7-17) mg/dL Creatinine 0.69 (0.52-1.04) mg/dL Estimated GFR > 60 (>60) mL/min BUN/Creatinine Ratio 21.7 (6-22) Glucose 90 (70-100) mg/dL Calcium 9.3 (8.4-10.2) mg/dL Total Bilirubin 0.6 (0.2-1.3) mg/dL AST 33 (14-36) IU/L ALT 27 (<35) IU/L Alkaline Phosphatase 95 (38-126) U/L Total Protein 8.4 H (6.3-8.2) g/dL Albumin 5.0 (3.5-5.0) g/dL Globulin 3.4 (1.7-4.1) g/dL Albumin/Globulin Ratio 1.5 (1.0-2.8) Lipase 59 (23-300) U/L Urine RBC (0-5/HPF) Urine WBC (0-5/HPF) Ur Squamous Epith Cells (0-5/HPF) Urine Bacteria (None) Ur Culture Indicated? 08/11/21 Range/Units 12:43 WBC (4.5-11.0) X10^3/uL RBC (4.0-5.2) X10^6/uL Hgb (12.0-16.0) g/dL Hct (36-46) % MCV (80-100) fL MCH (26-34) PG MCHC (30-36) % RDW (11.6-14.8) % Plt Count (150-400) X10^3/uL Neut % (Auto) (50-75) % Lymph % (Auto) (25-40) % [place] % (Auto) (3-14) % Eos % (Auto) (2-4) % Baso % (Auto) (0-2) % Neut # (Auto) (7114-4743) /uL Lymph # (Auto) (0546-1025) /uL [place] # (Auto) (0-900) /uL Eos # (Auto) (0-450) /uL Baso # (Auto) (0-100) /uL PT (10.1-12.7) SECONDS INR (0.9-1.3) APTT (26.4-36.2) SECONDS Sodium (137-145) mmol/L Potassium (3.4-5.1) mmol/L Chloride (98-107) mmol/L Carbon Dioxide (22-32) mmol/L BUN (7-17) mg/dL Creatinine (0.52-1.04) mg/dL Estimated GFR (>60) mL/min BUN/Creatinine Ratio (6-22) Glucose (70-100) mg/dL Calcium (8.4-10.2) mg/dL Total Bilirubin (0.2-1.3) mg/dL AST (14-36) IU/L ALT (<35) IU/L Alkaline Phosphatase (38-126) U/L Total Protein (6.3-8.2) g/dL Albumin (3.5-5.0) g/dL Globulin (1.7-4.1) g/dL Albumin/Globulin Ratio (1.0-2.8) Lipase (23-300) U/L Urine RBC 5-10/hpf H (0-5/HPF) Urine WBC None seen (0-5/HPF) Ur Squamous Epith Cells 5-10 /hpf H (0-5/HPF) Urine Bacteria None seen (None) Ur Culture Indicated? Cult not indicated Point of care testing: Point of Care Testing Test Results Negative Urine Dip Bedside Urine Glucose Negative Bedside Urine Bilirubin - Negative Bedside Urine Ketone - Negative Urine Specific [place] 1.030 Bedside Urine Occult Blood - Negative Bedside Urine pH 6 Bedside Urine Protein - Negative Bedside Urine Urobilinogen - Negative Bedside Urine Nitrite - Negative Bedside Urine Leukocytes + [address] scan - abdomen/pelvis: Radiologist's Impression: Signed Patient: Marsha King MR#: [id number] : 1995 Acct:[id number] Age/Sex: 26 / F Date of Service: 08/11/21 Loc: ED Accession Number: [id number] ?? Procedure: CT abdomen pelvis w con Ordering Provider: Melissa Reveles D.O. PROCEDURE:? CT ABDOMEN PELVIS W CON ? INDICATIONS:? LOWER RIGHT QUAD PAIN ? TECHNIQUE:? After the administration of intravenous contrast, axial sections acquired from the lung bases to the pubic symphysis.? Coronal and sagittal reformats were performed.? For radiation dose reduction, the following was used:? automated exposure control, adjustment of mA and/or kV according to patient size.? ? COMPARISON:? None. ? FINDINGS:? Image quality:? Excellent.? ? Lung bases:? Unremarkable. Heart:? No significant findings. ? ABDOMEN: Liver:? Unremarkable.? ? Gallbladder:? Is within normal limits? ? Biliary ducts:? Unremarkable.? ? Pancreas:? Unremarkable.? ? Spleen:? Unremarkable.? ? Adrenal Glands:? Unremarkable.? ? Kidneys and Ureters:? Unremarkable.? ? ? Stomach and Bowel:? There is a small hiatal hernia.? Stomach, small bowel loops, and colon are unremarkable.? Normal appendix. Peritoneum:? No abnormal intraperitoneal fluid.? No free air.? ? Ventral Wall: ? No hernias.? Abdominal Nodes:? No retroperitoneal or mesenteric adenopathy by size criteria.? There are multiple mildly prominent subcentimeter mesenteric lymph nodes. Vessels:? Aorta and inferior vena cava are normal in size.? ? PELVIS: Pelvic Organs:? Unremarkable.? ? Bladder:? Urinary bladder is decompressed.? Pelvic Nodes: No enlarged lymph nodes.? Miscellaneous: No hernias are seen. ? ? ? Bones:? Unremarkable.? IMPRESSION:? 1. Mildly prominent mesenteric lymph nodes suggestive mesenteric adenitis. 2. Normal appendix. 3. Small hiatal hernia.? ? Dictated by: Dex Solano M.D. on 08/11/2021 at 14:01 ? ? Approved by: Dex Solano M.D. on 08/11/2021 at 14:10 ? MDM Narrative Medical decision making narrative: Patient presents with ongoing right lower quadrant pain. It is nonradiating. She is quite tender on palpation. Ultrasound was negative. She has no fever leukocytosis. CT does show mesenteric adenitis. At this time supportive care only. Discharge Plan Departure Patient Disposition: Home Clinical Impression: Acute mesenteric adenitis Instructions: DI for Mesenteric Adenitis-Adult Activity Restrictions/Additional Instructions: *You have been diagnosed with mesenteric adenitis *What to do: At this time Tylenol ibuprofen as needed.This time no need for antibiotics. Please continue to monitor. If her symptoms continue to worsen or you develop fever then he may need antibiotics and re-evaluation. *Continue to take medications as directed Tylenol 1000 mg every 6 hours if needed for [id number] pain ibuprofen 600 mg every 6-8 hours if needed for vusz-mp-lnsjuauh pain *Follow up with your primary care provider in 2-3 days or call [phone] *Return to ER if you should have fever, increasing pain, [or] any new, worsening or concerning symptoms Prescriptions: No Action citalopram 10 mg tablet 15 mg PO DAILY Qty: 45 3RF Rx Instructions: take on tab daily clotrimazole 1 % ointment 1 applic topical BID Qty: 56.7 0RF Rx Instructions: Prior to each feeding, visible residue should be removed, reapplied after feeding (DME) breast pump Device See Rx Instructions .ROUTE .MEDSUPPLY Qty: 1 0RF Rx Instructions: As directed nystatin 100,000 unit/gram cream 1 applic topical BID Qty: 30 1RF norethindrone (contraceptive) [Ortho Micronor] 0.35 mg tablet 0.35 mg PO DAILY Qty: 28 6RF prenat.vits,crystal,nus-xrmq-veety Tablet 1 tab PO DAILY 0RF ibuprofen 600 mg Tablet 600 mg PO Q6HR PRN (Reason: Pain, Mild (1-3)) Qty: 30 0RF cephalexin 500 mg capsule 500 mg PO BID Qty: 10 0RF Referrals: Jacqueline Andre MD [Primary Care Provider] -
[2021-08-11 14:51] LABS: Bacteria Urine None Seen; Culture Indicated Urine Cult Not Indicated; RBC Urine 5-10/HPF (0-5/HPF); Squamous Epithelial Cell Urine 5-10 /HPF (0-5/HPF); WBC Urine None Seen (0-5/HPF)
[2021-08-11 14:54] VITALS: BP 112/60; PULSE 78; O2SAT 98
== END 2021-08-11 15:01 | disposition home or self-care (01) ==
PROVIDERS: Emergency Provider Emergency Medicine; PCP Family Medicine
DX: I88.0 Nonspecific mesenteric lymphadenitis (principal)
CPT/HCPCS: 36415; 74177; 80053; 81003; 81015; 81025; 83690; 85025; 85610; 85730; 87077; 87086; 99284

== ENCOUNTER → 2022-04-19 11:48 | Outpatient (CLI) | payer OTHER, SELFPAY ==
[2021-06-10 08:43] VITALS: BMI 29.5
[2022-04-19 12:45] LABS: Influenza A - CEPHEID Flu A NEGATIVE (NEGATIVE); Influenza B - CEPHEID Flu B NEGATIVE (NEGATIVE); Respiratory Syncytial Virus Negative (Negative)
[2022-04-19 12:54] LABS: COVID-19 CEPHEID 4-PLEX PCR POSITIVE (Negative)
== END ==
PROVIDERS: PCP Family Medicine; Visit Provider Student in an Organized Health Care Education/Training Program
DX: R50.9 Fever, unspecified (principal)
CPT/HCPCS: 0241U

== ENCOUNTER 2022-08-21 17:40 | Emergency (ER) | payer OTHER, SELFPAY ==
[2021-06-10 08:43] VITALS: BMI 29.5
[2022-08-21 17:43] VITALS: BP 103/68; PULSE 104; RESP 22; TEMP 36.3; O2SAT 97; BMI 29.2
--- NOTE | 2022-08-21 18:01 | DI.RAD.S_ITS ---
PROCEDURE: XR CHEST 1V INDICATIONS: sough eval for PNA TECHNIQUE: One view of the chest was acquired. COMPARISON: None. FINDINGS: Surgical changes and devices: None. Lungs and pleura: No definite suspicious focal airspace opacity identified. No pleural effusions or pneumothorax. Mediastinum: Mediastinal contours appear normal. Heart size is normal. Bones and chest wall: No suspicious bony lesions. Overlying soft tissues appear unremarkable. IMPRESSION: No acute cardiopulmonary abnormality. Dictated by: Lio Morrow M.D. on 08/21/2022 at 19:01 Approved by: Lio Morrow M.D. on 08/21/2022 at 19:02
[2022-08-21 18:42] LABS: RBC Urine 1-5/HPF (0-5/HPF); WBC Urine 0-1/HPF (0-5/HPF)
[2022-08-21 18:43] LABS: Bacteria Urine Many (>30); Squamous Epithelial Cell Urine 1-5 /HPF (0-5/HPF); Transitional Epi Cells Urine 0-1/HPF (0-5/HPF)
[2022-08-21 18:44] LABS: Culture Indicated Urine Specimen Cultured
[2022-08-21 19:36] LABS: Adenovirus Not Detected (Not Detect); B. parapertussis Not Detected (Not Detecte); Bordetella pertussis Not Detected (Not Detecte); Chlamydophila pneumoniae Not Detected (Not Detect); Coronavirus 229E Not Detected (Not Detect); Coronavirus HKU1 Not Detected (Not Detect); Coronavirus NL 63 Not Detected (Not Detect); Coronavirus OC43 Not Detected (Not Detect); Human Metapneumovirus Detected (Not Detect); Human Rhinovirus/Enterovirus Not Detected (Not Detect); Influenza A Not Detected (Not Detect); Influenza B Not Detected (Not Detect); Mycoplasma pneumoniae Not Detected (Not Detect); Parainfluenza Virus 1 Not Detected (Not Detect); Parainfluenza Virus 2 Not Detected (Not Detect); Parainfluenza Virus 3 Not Detected (Not Detect); Parainfluenza Virus 4 Not Detected (Not Detect); Respiratory Syncytial Virus Not Detected (Not Detect); SARS- CoV-2 Not Detected (Not Detecte)
--- NOTE | 2022-08-21 19:54 | ED.GENADULT ---
HPI - General Adult General Chief complaint: Upper Respiratory Symptoms Stated complaint: Mucus, Chest/Lung pain Time Seen by Provider: 08/21/22 17:48 Source: patient Mode of arrival: Family Vehicle History of Present Illness HPI narrative: 27-year-old female who is here for evaluation of several days of cough, lung pain, chest discomfort, mucus, her son was recently seen here in the emergency department and diagnosed with pneumonia. No fevers. Related Data Home Medications Medication Instructions Recorded Confirmed prenat.vits,crystal,ekk-[id number]-okoow 1 tab PO DAILY 09/05/20 04/19/22 Previous Rx's Medication Instructions Recorded breast pump #1 ea 04/14/21 norethindrone (contraceptive) 0.35 0.35 mg PO DAILY #84 tabs 01/12/22 mg tablet (Ortho Micronor) citalopram 10 mg tablet See Rx Instructions .Route 08/13/22 .COMPLEX #60 tabs benzonatate 100 mg capsule 100 mg PO BID PRN cough #20 caps 08/16/22 fluticasone propionate 50 1 spray intranasal Q12H #16 grams 08/16/22 mcg/actuation nasal spray,suspension (Flonase Allergy Relief) Allergies Allergy/AdvReac Type Severity Reaction Status Date / Time lactose Allergy Intermediate GI upset & Verified 08/21/22 18:15 pain Review of Systems Constitutional Constitutional: Reports system reviewed and no additional complaints, except as documented Respiratory Respiratory: Reports system reviewed and no additional complaints, except as documented Gastrointestinal Gastrointestinal: Reports system reviewed and no additional complaints, except as documented Integumentary/Breasts Skin/Breast: Reports system reviewed and no additional complaints, except as documented Neurologic Neurologic: Reports system reviewed and no additional complaints, except as documented Patient History Medical History Anxiety Chicken pox (~2015) Chlamydia (~2020) GERD (gastroesophageal reflux disease) (~2016) Maternal infection, Migraines (~2018) anxiety Scoliosis Shingles (~2019) Spontaneous vaginal delivery Surgical History Anesthesia History of removal of nevus [place] teeth extracted (~2017) Family History Mother Hypertension Hyperlipidemia Father Brain malignant neoplasm Stented coronary artery Grandmother Diabetes mellitus Thyroid cancer Cardiac defibrillator in situ Pacemaker Stented coronary artery Psoriasis Grandfather Dementia Pacemaker Hx of [place] [facility] use of blood thinners Grandmother Unknown family medical history Grandfather Brain embolism and thrombosis Brother No problems noted. Social History marital status: unmarried,living together number of children: 0 household members: significant other lives independently: Yes caregiver/support person: No housing: house pets and animals: Yes (1 dog, 3 cats: aware & safe. 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: Muslim special ruth needs: No seatbelt use: always working smoke detector in home: Yes fire extinguisher in home: Yes carbon monox detector in home: Yes firearms in home: Yes firearms unloaded and locked: Yes do you feel safe at home: Yes Smoking Status: Never smoker second hand exposure: No alcohol intake: former substance use type: does not use during the past year weight has: increased > 10 lbs well-balanced diet: daily or most days caffeine: Yes (2-3 cups a week total.) Type(s) of exercise: normal ROM and activity frequency: daily duration: > 90 minutes/day Smoking Status: Never smoker alcohol intake frequency: holidays/special occasions only Alcohol type: other Substance Use Type: does not use Exam Initial Vital Signs Initial Vital Signs: Vital Signs Temperature 97.4 F L 08/21/22 17:43 Pulse Rate 104 H 08/21/22 17:43 Respiratory Rate 22 08/21/22 17:43 Blood Pressure 103/68 08/21/22 17:43 Pulse Oximetry 97 08/21/22 17:43 Oxygen Delivery Method Room Air 08/21/22 17:43 HENMT Head: normal to inspection and normocephalic Chest Chest: normal inspection of the chest Resp Effort & Inspection: normal respiratory effort Auscultation: clear to auscultation bilaterally Cardio Rate: regular rate Rhythm: regular rhythm GI Inspection: normal to inspection Skin General: no rashes or lesions noted Neuro General: patient alert, patient awake and moves all extremities Course Orders Ordered: ED Orders 08/21/22 17:54 Urine Microscopic Stat 08/21/22 18:01 XR chest 1V Stat 08/21/22 18:05 Urine Culture Stat 08/21/22 18:10 Respiratory Panel (Film Array) Stat Vital Signs Vital signs: Vital Signs - 8 hr 08/21/22 20:06 Pulse Rate 89 Respiratory Rate 16 Blood Pressure 117/64 Pulse Oximetry 99 Oxygen Delivery Method Room Air Medical Decision Making Lab Data Lab results reviewed: Yes I reviewed the patient's lab results. Labs: Lab Results 08/21/22 08/21/22 Range/Units 17:54 18:10 Urine RBC 1-5/hpf (0-5/HPF) Urine WBC 0-1/hpf (0-5/HPF) Ur Squamous Epith Cells 1-5 /hpf (0-5/HPF) Ur Transition Epith Cell 0-1/hpf (0-5/HPF) Urine Bacteria Many (>30) H (None) Ur Culture Indicated? Specimen cultured Chlamy pneumoniae PCR Not detected (Not Detect) Adenovirus (PCR) Not detected (Not Detect) B. pertussis DNA (PCR) Not detected (Not Detecte) B.parapertussis DNA PCR Not detected (Not Detecte) Coronavirus OC43 (PCR) Not detected (Not Detect) Coronavirus HKU1 (PCR) Not detected (Not Detect) Coronavirus 229E (PCR) Not detected (Not Detect) SARS-CoV-2 (PCR) Not detected (Not Detecte) Coronavirus NL63 (PCR) Not detected (Not Detect) Human Metapneumovir PCR Detected H (Not Detect) Influenza Type A (PCR) Not detected (Not Detect) Influenza Type B (PCR) Not detected (Not Detect) M. pneumoniae (PCR) Not detected (Not Detect) Parainfluenza 1 (PCR) Not detected (Not Detect) Parainfluenza 2 (PCR) Not detected (Not Detect) Parainfluenza 3 (PCR) Not detected (Not Detect) Parainfluenza 4 (PCR) Not detected (Not Detect) RSV (PCR) Not detected (Not Detect) Entero/Rhino (PCR) Not detected (Not Detect) Point of Care Testing Test Results Negative Urine Dip Bedside Urine Glucose Negative Bedside Urine Bilirubin - Negative Bedside Urine Ketone - Negative Urine Specific [place] 1.025 Bedside Urine Occult Blood + Bedside Urine pH 6.0 Bedside Urine Protein - Negative Bedside Urine Urobilinogen - Negative Bedside Urine Nitrite - Negative Bedside Urine Leukocytes - Negative Esterase Point of care testing: Point of Care Testing Test Results Negative Urine Dip Bedside Urine Glucose Negative Bedside Urine Bilirubin - Negative Bedside Urine Ketone - Negative Urine Specific [place] 1.025 Bedside Urine Occult Blood + Bedside Urine pH 6.0 Bedside Urine Protein - Negative Bedside Urine Urobilinogen - Negative Bedside Urine Nitrite - Negative Bedside Urine Leukocytes - Negative Esterase Imaging Data Chest x-ray: Radiologist's Impression: PROCEDURE:? XR CHEST 1V ? INDICATIONS:? sough eval for PNA ? TECHNIQUE:? One view of the chest was acquired.? ? COMPARISON:? None. ? FINDINGS:? ? Surgical changes and devices:? None.? ? Lungs and pleura:? No definite suspicious focal airspace opacity identified.? No pleural effusions or pneumothorax.? ? Mediastinum:? Mediastinal contours appear normal.? Heart size is normal.? ? Bones and chest wall:? No suspicious bony lesions.? Overlying soft tissues appear unremarkable.? ? IMPRESSION:? No acute cardiopulmonary abnormality. MDM Narrative Medical decision making narrative: Positive for human metapneumovirus. Chest x-ray shows no signs of pneumonia. Not hypoxic. Not tachypneic. No indication for antibiotics. Discharge Plan Departure Patient Disposition: Home Clinical Impression: Acute bronchitis due to human metapneumovirus Instructions: Human Metapneumovirus Infection Activity Restrictions/Additional Instructions: The x-ray today shows no signs of pneumonia. Your positive for a viral infection called the human metapneumovirus. You can continue to take the djcc-lwd-kmuvjvo cough and cold preparations. Contact your primary doctor for follow-up. Return to the emergency department for new symptoms. Prescriptions: No Action benzonatate 100 mg capsule 100 mg PO BID PRN (Reason: cough) Qty: 20 0RF fluticasone propionate [Flonase Allergy Relief] 50 mcg/actuation spray,suspension 1 spray intranasal Q12H Qty: 16 0RF Rx Instructions: administer into each nostril (DME) breast pump Device See Rx Instructions .ROUTE .MEDSUPPLY Qty: 1 0RF Rx Instructions: As directed norethindrone (contraceptive) [Ortho Micronor] 0.35 mg tablet 0.35 mg PO DAILY Qty: 84 3RF citalopram 10 mg tablet See Rx Instructions .ROUTE .COMPLEX Qty: 60 0RF Dose Instruction: TAKE 2 TABLETS BY MOUTH DAILY Rx Instructions: TAKE 2 TABLETS BY MOUTH DAILY prenat.vits,crystal,[id number] Tablet 1 tab PO DAILY Referrals: Jacqueline Andre MD [Primary Care Provider] - Stand Alone Forms: Patient Portal/API
[2022-08-21 20:06] VITALS: BP 117/64; PULSE 89; RESP 16; O2SAT 99
== END 2022-08-21 20:07 | disposition home or self-care (01) ==
PROVIDERS: Emergency Medicine; Emergency Provider Emergency Medicine; PCP Family Medicine
DX: J20.8 Acute bronchitis due to other specified organisms (principal); Z20.822 Contact with and (suspected) exposure to COVID-19
CPT/HCPCS: 71045; 81003; 81015; 81025; 87086; 87633; 99283